=== PATIENT | female | born 1995 | race Caucasian/White ===

== ENCOUNTER 2017-06-30 13:17 | Outpatient (CLI) | payer MEDICAID ==
[2017-06-30 14:36] LABS: AMNISURE (ROM) NEGATIVE (NEGATIVE)
[2017-06-30 14:36] LABS: APPEARANCE,URINE CLOUDY; BILIRUBIN,URINE NEGATIVE (NEGATIVE); GLUCOSE, URINE NEGATIVE (NEGATIVE); KETONES,URINE 80 mg/dL (NEGATIVE); LEUKOCYTE ESTERASE,URINE LARGE (NEGATIVE); NITRITE,URINE NEGATIVE (NEGATIVE); PROTEIN,URINE 30 mg/dL (NEGATIVE); URINE SPECIFIC GRAVITY 1.011
[2017-06-30 14:47] LABS: BACTERIA,URINE TRACE /HPF; WBC,URINE 20-30 /HPF
[2017-06-30 15:12] LABS: URINE BARBITURATES SCREEN NEGATIVE; URINE METHADONE SCREEN NEGATIVE; URINE PHENCYCLIDINE SCREEN NEGATIVE
[2017-06-30 15:22] LABS: URINE OPIATES LOW UNCONFIRMED POSITIVE
== END 2017-06-30 15:47 | disposition home or self-care (01) ==
LOC: LC 13:17
PROVIDERS: ATTEND Student in an Organized Health Care Education/Training Program
PROC: 4A1HXCZ Monitoring of Products of Conception, Cardiac Rate, External Approach (ICD-10-PCS; principal; 2017-06-30)
DX: O23.43 Unspecified infection of urinary tract in pregnancy, third trimester (principal); Z3A.28 28 weeks gestation of pregnancy
CPT/HCPCS: 59899; 84112; 87086; 87210; 87088; 81001; 80307; 87491; 87591; G0480 ×2; G6056; 80361

== ENCOUNTER → 2017-08-16 | Outpatient (CLI) | payer MEDICAID | LOC: OD 16:56 | PROVIDERS: ATTEND Midwife | DX: O26.619 Liver and biliary tract disorders in pregnancy, unspecified trimester (principal) | CPT/HCPCS: 36415; 82239 ==

== ENCOUNTER 2017-08-19 14:46 | Outpatient (CLI) | payer MEDICAID ==
[2017-08-19] MEDS ORDERED: RINGERS SOLUTION,LACTATED 300 ML IV ONE (15:36)
[2017-08-19] MEDS ORDERED: RINGERS SOLUTION,LACTATED 1,000 ML IV PRN (15:36)
[2017-08-19 17:03] LABS: ALANINE AMINOTRANSFERASE 52 U/L (9-52); ALBUMIN 3.2 g/dL (3.5-5.0); ALKALINE PHOSPHATASE 144 U/L (38-126); ANION GAP 8 (5-19); ASPARTATE AMINO TRANSFERASE 44 U/L (14-36); BILIRUBIN,DIRECT 0.2 mg/dL (0.0-0.4); BILIRUBIN,TOTAL 0.2 mg/dL (0.2-1.3); BLOOD UREA NITROGEN 6 mg/dL (7-20); CALCIUM 9.4 mg/dL (8.4-10.2); CARBON DIOXIDE 24 mmol/L (22-30); CHLORIDE 104 mmol/L (98-107); GLUCOSE 85 mg/dL (75-110); POTASSIUM 4.1 mmol/L (3.6-5.0); SODIUM 136.1 mmol/L (137-145); TOTAL PROTEIN 5.8 g/dL (6.3-8.2)
[2017-08-19 17:25] LABS: APPEARANCE,URINE SLIGHTLY-CLOUDY; BILIRUBIN,URINE NEGATIVE (NEGATIVE); COLOR,URINE STRAW; GLUCOSE, URINE NEGATIVE (NEGATIVE); KETONES,URINE NEGATIVE (NEGATIVE); LEUKOCYTE ESTERASE,URINE SMALL (NEGATIVE); NITRITE,URINE NEGATIVE (NEGATIVE); PROTEIN,URINE NEGATIVE (NEGATIVE); URINE SPECIFIC GRAVITY 1.005; UROBILINOGEN,URINE NEGATIVE mg/dL (<2.0)
[2017-08-19 17:36] LABS: URINE AMPHETAMINES SCREEN NEGATIVE; URINE BARBITURATES SCREEN NEGATIVE; URINE COCAINE SCREEN NEGATIVE; URINE MARIJUANA (THC) SCREEN NEGATIVE; URINE METHADONE SCREEN NEGATIVE; URINE PHENCYCLIDINE SCREEN NEGATIVE
[2017-08-19 17:41] LABS: URINE BENZODIAZEPINES SCREEN UNCONFIRMED POSITIVE
--- NOTE | 2017-08-19 18:36 | Non Stress Test Report ---
Non Stress Test Datetime Report Generated by CPN: 08/19/2017 18:35 DEMOGRAPHIC EGA NST: 35.3 INDICATION Indication for Study: Ordered by Provider MONITORING Monitor Explained: Monitor Explained; Test Explained; Patient Verbalized Understanding Time on Monitor: 08/19/2017 15:10 Time off Monitor: 08/19/2017 17:30 NST Duration: 140 NST INTERVENTIONS NST Interventions: PO Hydration; IV Fluids; For Biophysical Profile Physician Notified NST: Dr. Tony BABY A: [id number] BABY A Movement : Present Contraction Frequency : 4-8 FHR Baseline : 145 Accelerations : 15X15 Decelerations : None Variability : Moderate 6-25bpm NST Review: Meets Criteria for Reactive NST NST Review and Verified By : Malia Long RNC NST Results: Reactive NST REPORT Report Trigger: Send Report
--- NOTE | 2017-08-19 19:35 | RADIOLOGY REPORT (SQ) ---
EXAM DESCRIPTION: U/S PROFILE W/O STRESS COMPLETED DATE/TIME: 08/19/2017 7:24 pm REASON FOR STUDY: repeat BPP from [facility] COMPARISON: None. TECHNIQUE: Limited ramirez-scale realtime and static images of the fetus to measure specified parameter s. LIMITATIONS: None. FINDINGS: HEART RATE: 157 beats per minute. JIGAR: 13.2 cm. BREATHING MOVEMENT: 2 points. MOVEMENT: 2 points. POSTURE AND TONE: 2 points. QUALITATIVE JIGAR: 2 points. OTHER: No other significant finding. IMPRESSION: BIOPHYSICAL PROFILE: 03/05. COMMENT: BREATHING MOVEMENTS: 2 POINTS: PRESENT 0 POINTS: ABSENT MOTION: 2 POINTS: PRESENT 0 POINTS: ABSENT TONE: 2 POINTS: PRESENT 0 POINTS: ABSENT AMNIOTIC FLUID VOLUME: 2 POINTS: LARGEST POCKET GREATER THAN 2 CM DEPTH. 0 POINTS: NO POCKET OF 2 CM. TECHNICAL DOCUMENTATION: JOB ID: [id number] [employer]- All Rights Reserved
== END 2017-08-19 19:36 | disposition home or self-care (01) ==
LOC: LC 14:46
PROVIDERS: ATTEND Obstetrics & Gynecology
PROC: 4A1HXCZ Monitoring of Products of Conception, Cardiac Rate, External Approach (ICD-10-PCS; principal; 2017-08-19)
DX: O47.03 False labor before 37 completed weeks of gestation, third trimester (principal); Z3A.35 35 weeks gestation of pregnancy
CPT/HCPCS: 36415; 59025; 76819; 80053; 80307; 81001

== ENCOUNTER 2017-08-25 14:44 | Emergency (ER) | payer MEDICAID ==
[2017-08-25] MEDS ORDERED: DIPHENHYDRAMINE HCL 50 MG CAPSULE PO ONE (15:41)
[2017-08-25] MEDS ORDERED: PENICILLIN G BENZATHINE 1.2 MILLION UNIT/2 ML DISP.SYRIN IM ONE (15:41)
[2017-08-25] MEDS ORDERED: FAMOTIDINE 20 MG TABLET PO ONE ×2 (15:41→16:11)
--- NOTE | 2017-08-25 15:41 | ER Document Report ---
ED GI/ - General Chief Complaint: STD Exposure Stated Complaint: STD CHECK Time Seen by Provider: 08/25/17 15:12 Mode of Arrival: Ambulatory Information source: Patient Notes: 22-year-old female presented to ED for STD check. She states that she was provided by her previous partner that they tested positive for syphilis. She states she was with this person and early July. She states that in June 2017, she was diagnosed with HSV-2 and trichomonas and was treated with Valtrex and Flagyl. She stated a year ago she was treated for chlamydia. She denies any vaginal itching, vaginal discharge, any foul odors or any other complications or signs or symptoms at this time. She is 36 weeks . TRAVEL OUTSIDE OF THE [place] IN LAST 30 DAYS: No - HPI Patient complains to provider of: Other - Sexual partner told her that they were positive for syphilis Onset: Other - Partner called her on Saturday and told her that the partner was positive for syphilis Quality of pain: No pain Pain Level: Denies Vaginal bleeding (Compared to normal period): None Menstrual period history: : 2 Para: 1 Sexual history: Active Associated symptoms: Nausea, Vomiting, Other - Partner tested positive for sepsis Exacerbated by: Denies Relieved by: Denies Similar symptoms previously: No Recently seen / treated by doctor: Yes - Related Data Allergies/Adverse Reactions: amoxicillin [Amoxicillin] Allergy (Verified 08/19/17 15:24) Hives Penicillins Allergy (Verified 08/19/17 15:24) Past Medical History - General Information source: Patient - Social History Smoking Status: Current Every Day Smoker Cigarette use (# per day): Yes Chew tobacco use (# tins/day): No Smoking Education Provided: Yes - 4 min Frequency of alcohol use: None Drug Abuse: None Lives with: Family Family History: Reviewed & Not Pertinent, Other - ptsd, bipolar, alcoholism Patient has suicidal ideation: No Patient has homicidal ideation: No - Past Medical History Cardiac Medical History: Reports: None Pulmonary Medical History: Reports: None EENT Medical History: Reports: None Neurological Medical History: Reports: None Endocrine Medical History: Reports: None Renal/ Medical History: Reports: Hx Pelvic Inflammatory Disease, Other - HSV-2 Malignancy Medical History: Reports: None GI Medical History: Reports: None Musculoskeltal Medical History: Reports None Psychiatric Medical History: Reports: Hx Anxiety, Hx Bipolar Disorder, Hx Depression Traumatic Medical History: Reports: None Infectious Medical History: Reports: None Surgical Hx: Negative - Immunizations Immunizations up to date: No Hx Diphtheria, Pertussis, Tetanus Vaccination: No Review of Systems - Review of Systems Constitutional: No symptoms reported EENT: No symptoms reported Cardiovascular: No symptoms reported Respiratory: No symptoms reported Gastrointestinal: Nausea, Vomiting Genitourinary: No symptoms reported Female Genitourinary: Musculoskeletal: No symptoms reported Skin: No symptoms reported Hematologic/Lymphatic: No symptoms reported Neurological/Psychological: No symptoms reported -: Yes All other systems reviewed and negative Physical Exam - Vital signs Vitals: Temp Pulse Resp BP Pulse Ox 98.8 F 76 20 115/66 100 08/25/17 14:49 08/25/17 14:49 08/25/17 14:49 08/25/17 14:49 08/25/17 14:49 Interpretation: Normal - General General appearance: Appears well, Alert - HEENT Head: Normocephalic, Atraumatic Eyes: Normal Pupils: PERRL Ears: Normal External canal: Normal Tympanic membrane: Normal Sinus: Normal Nasal: Normal Mouth/Lips: Normal Mucous membranes: Normal Pharynx: Normal Neck: Normal - Respiratory Respiratory status: No respiratory distress Chest status: Nontender Breath sounds: Normal Chest palpation: Normal - Cardiovascular Rhythm: Regular Heart sounds: Normal auscultation Murmur: No - Abdominal Inspection: Gravid female Distension: No distension Bowel sounds: Normal Tenderness: Nontender Organomegaly: No organomegaly - Back Back: Normal, Nontender - Extremities General upper extremity: Normal inspection, Nontender, Normal color, Normal ROM , Normal temperature General lower extremity: Normal inspection, Nontender, Normal color, Normal ROM , Normal temperature, Normal weight bearing. No: Ashtyn's sign - Neurological Neuro grossly intact: Yes Cognition: Normal Orientation: AAOx4 [place] Coma Scale Eye Opening: Spontaneous Justina Coma Scale Verbal: Oriented [place] Coma Scale Motor: Obeys Commands [place] Coma Scale Total: 15 Speech: Normal Motor strength normal: LUE, RUE, LLE, RLE Sensory: Normal - Psychological Associated symptoms: Normal affect, Normal mood - Skin Skin Temperature: Warm Skin Moisture: Dry Skin Color: Normal Course - Re-evaluation Re-evalutation: 08/25/17 15:27 22-year-old female seen for a partner that is positive for syphilis. She is 36 weeks . [facility] Dr. Staton consulted he stated to treat the matter what the tests results. 08/25/17 15:[address] Shah because patient is states she is allergic to penicillin. Mother states she had a rash all over when she was a child has not had any penicillin amoxicillin or cephalosporins since then. Patient states she wanted the penicillin for her possible contact with syphilis as she is 36 weeks and does not want to take the risk of her baby not being treated properly. Dr. Shah stating stated that he would prefer COOKER SULF[facility] and consulted for this. Dr. Staton at [facility] consulted he stated that the patient should have Benadryl and Pepcid before the penicillin but to give the patient the penicillin because most people do not have a true allergic reaction to penicillin. Patient will be treated with Benadryl and Pepcid then 15 minutes later given the penicillin. She will be monitored for 1 hour after the penicillin injection. - Vital Signs Vital signs: Temp Pulse Resp BP Pulse Ox 98.8 F 83 13 111/58 L 98 08/25/17 17:57 08/25/17 17:57 08/25/17 17:57 08/25/17 17:57 08/25/17 17:57 - Laboratory Laboratory results interpreted by me: 08/25/17 15:45 Urine Protein 30 H Urine Ketones 20 H Urine Urobilinogen 4.0 H Ur Leukocyte Esterase TRACE H Discharge - Discharge Clinical Impression: STD exposure Condition: Stable Disposition: HOME, SELF-CARE Additional Instructions: You were seen today for STD exposure to syphilis. Your [facility] SULF[facility] was called and he stated he would like to treated if you have been exposed to this because she were 36 weeks . You are allergic to penicillin according to your records this was discussed with your [facility] Dr. Staton who stated you should be premedicated with Benadryl and Pepcid and then medicated with the penicillin G 2.4 million units IM. You have been medicated as indicated. You have had no reactions to the penicillin. You gonorrhea and chlamydia and urine test are negative. You have been stable for your observation ater the penicillin and you will be discharged home to follow-up with your [facility]ULF[facility]. These informed him that your RPR was negative. FOLLOW-UP CARE: If you have been referred to a physician for follow-up care, call the physician s office for an appointment as you were instructed or within the next two days. If you experience worsening or a significant change in your symptoms, notify the physician immediately or return to the Emergency Department at any time for re-evaluation. Referrals: PEYTON RESENDIZ MD [Primary Care Provider] - Follow up as needed
[2017-08-25] MEDS ORDERED: FAMOTIDINE INJ/PF 20 MG/2 ML SDV IV ONE ×2 (16:05→16:13)
[2017-08-25] MEDS ORDERED: DIPHENHYDRAMINE HCL 50 MG/ML VIAL IV ONE (16:05)
[2017-08-25 16:20] LABS: AMORPHOUS SEDIMENT,URINE TRACE /HPF; APPEARANCE,URINE SLIGHTLY-CLOUDY; BILIRUBIN,URINE NEGATIVE (NEGATIVE); COLOR,URINE DARK YELLOW; GLUCOSE, URINE NEGATIVE (NEGATIVE); KETONES,URINE 20 mg/dL (NEGATIVE); LEUKOCYTE ESTERASE,URINE TRACE (NEGATIVE); NITRITE,URINE NEGATIVE (NEGATIVE); PROTEIN,URINE 30 mg/dL (NEGATIVE); URINE SPECIFIC GRAVITY 1.024
[2017-08-25 17:39] LABS: CHLAM PCR NOT DETECTED (NOT DETECT); GON PCR NOT DETECTED (NOT DETECT)
[2017-08-25 17:59] VITALS: BP 111/58
== END 2017-08-25 17:59 | disposition home or self-care (01) ==
LOC: ER 14:44
DX: O98.313 Other infections with a predominantly sexual mode of transmission complicating pregnancy, third trimester (principal); Z20.2 Contact with and (suspected) exposure to infections with a predominantly sexual mode of transmission; Z3A.36 36 weeks gestation of pregnancy
CPT/HCPCS: 99283; 96372; 96374; 96375; 36415; 86592; 81001; 87491; 87591; J3490 ×2; J1200; J0561; S0028

== ENCOUNTER 2017-09-04 08:05 | Inpatient (IN) | payer MEDICAID ==
[2017-09-04] MEDS ORDERED: PENICILLIN G POTASSIUM 5,000,000 UNIT in DEXTROSE 5%-WATER 100 ML IV ONE (08:22)
[2017-09-04] MEDS ORDERED: FAMOTIDINE INJ/PF 20 MG/2 ML SDV IV ONE ×2 (08:25→09:15)
[2017-09-04 08:42] LABS: APPEARANCE,URINE SLIGHTLY-CLOUDY; BILIRUBIN,URINE NEGATIVE (NEGATIVE); COLOR,URINE YELLOW; GLUCOSE, URINE NEGATIVE (NEGATIVE); KETONES,URINE NEGATIVE (NEGATIVE); LEUKOCYTE ESTERASE,URINE SMALL (NEGATIVE); NITRITE,URINE NEGATIVE (NEGATIVE); PROTEIN,URINE 30 mg/dL (NEGATIVE); UROBILINOGEN,URINE NEGATIVE mg/dL (<2.0)
[2017-09-04 09:09] LABS: URINE AMPHETAMINES SCREEN NEGATIVE; URINE BARBITURATES SCREEN NEGATIVE; URINE BENZODIAZEPINES SCREEN NEGATIVE; URINE COCAINE SCREEN NEGATIVE; URINE MARIJUANA (THC) SCREEN NEGATIVE; URINE METHADONE SCREEN NEGATIVE; URINE PHENCYCLIDINE SCREEN NEGATIVE
[2017-09-04] MEDS ORDERED: DIPHENHYDRAMINE HCL 50 MG/ML VIAL ONE ×3 (09:15→18:21)
[2017-09-04] MEDS ORDERED: MISOPROSTOL 0.2 MG TABLET ONE ×2 (09:15→20:04)
[2017-09-04] MEDS ORDERED: LIDOCAINE 1% INJ-PF (10 MG/ML) 30 ML SDV ONE ×2 (09:15→20:04)
[2017-09-04] MEDS ORDERED: PENICILLIN G-K 5 MILLION UNIT VIAL ONE ×3 (09:16→18:20)
[2017-09-04] MEDS ORDERED: OXYTOCIN/NORMAL SALINE 20 UNIT/1,000 ML RTUINJ ONE (09:16)
[2017-09-04] MEDS: RINGERS SOLUTION,LACTATED 1,000 ML IV PRN ×2 (09:21→19:14)
[2017-09-04 09:22] LABS: ABSOLUTE EOSINOPHILS # (AUTO) 0.1 10^3/uL (0.0-0.6); ABSOLUTE LYMPHOCYTES (AUTO) 2.7 10^3/uL (0.5-4.7); ABSOLUTE MONOCYTES (AUTO) 0.9 10^3/uL (0.1-1.4); ABSOLUTE NEUT (AUTO) 5.7 10^3/uL (1.7-8.2); BASOPHILS % (AUTO) 0.2 % (0-2); EOSINOPHILS % (AUTO) 0.9 % (0-6); HEMATOCRIT 31.5 % (36.0-47.0); HEMOGLOBIN 10.8 g/dL (12.0-15.5); LYMPHOCYTES % (AUTO) 28.9 % (13-45); MEAN CORPUSCULAR HEMOGLOBIN 27.3 pg (27.0-33.4); MEAN CORPUSCULAR HGB CONC 34.4 g/dL (32.0-36.0); MEAN CORPUSCULAR VOLUME 79 fl (80-97); MONOCYTES % (AUTO) 9.3 % (3-13); PLATELET COUNT 266 10^3/uL (150-450); RED BLOOD COUNT 3.96 10^6/uL (3.72-5.28); RED CELL DISTRIBUTION WIDTH 13.4 % (11.5-14.0); SEGMENTED NEUTROPHILS % (AUTO) 60.7 % (42-78); TOTAL CELLS COUNTED % (AUTO) 100 %; WHITE BLOOD COUNT 9.5 10^3/uL (4.0-10.5)
[2017-09-04] MEDS ORDERED: DIPHENHYDRAMINE HCL 50 MG/ML VIAL IV ONE (09:30)
[2017-09-04 09:34] LABS: INTERNATIONAL RATION (INR) 0.82; PROTHROMBIN TIME 11.9 SEC (11.4-15.4)
[2017-09-04 09:46] LABS: ALANINE AMINOTRANSFERASE 58 U/L (9-52); ALBUMIN 3.2 g/dL (3.5-5.0); ALKALINE PHOSPHATASE 155 U/L (38-126); ANION GAP 11 (5-19); ASPARTATE AMINO TRANSFERASE 53 U/L (14-36); BLOOD UREA NITROGEN 7 mg/dL (7-20); CALCIUM 9.5 mg/dL (8.4-10.2); CARBON DIOXIDE 20 mmol/L (22-30); CHLORIDE 106 mmol/L (98-107); GLUCOSE 112 mg/dL (75-110); LDH 377 U/L (313-618); POTASSIUM 3.7 mmol/L (3.6-5.0); SODIUM 137.4 mmol/L (137-145); TOTAL PROTEIN 5.8 g/dL (6.3-8.2); URIC ACID 4.9 mg/dL (2.5-6.2)
[2017-09-04 09:48] LABS: BILIRUBIN,TOTAL < 0.1 mg/dL (0.2-1.3)
[2017-09-04] MEDS: OXYTOCIN/NORMAL SALINE 20 UNIT/1,000 ML RTUINJ IV PRN ×2 (12:21→19:13)
[2017-09-04] MEDS ORDERED: MORPHINE SULFATE 10 MG/ML INJ IV ONE (14:07)
[2017-09-04] MEDS: PENICILLIN G POTASSIUM 2,500,000 UNIT in DEXTROSE 5%-WATER 50 ML IV SCH ×3 (14:18→21:41)
[2017-09-04] MEDS ORDERED: NALBUPHINE HCL INJ 10 MG/1 ML AMPULE INJ ONE (16:19)
[2017-09-04] MEDS ORDERED: NALBUPHINE HCL INJ 10 MG/1 ML AMPULE ONE (16:24)
[2017-09-04] MEDS ORDERED: FENTANYL CITRATE INJ/PF 100 MCG/2 ML AMPUL ONE (17:08)
[2017-09-04] MEDS ORDERED: EPHEDRINE SULFATE INJ 50 MG/1 ML AMPULE ONE (17:09)
[2017-09-04] MEDS ORDERED: FENTANYL/BUPIVACAINE/NS/PF 200 MCG/100 ML RTUINJ EPI ONE (17:09)
[2017-09-04] MEDS ORDERED: BUPIVACAINE HCL 0.25 % INJ/PF (2.5 MG/1 ML) 30 ML VIAL ONE (17:09)
[2017-09-04] MEDS ORDERED: PHENYLEPHRINE HCL INJ/PF 10 MG/1 ML SDV ONE (17:09)
[2017-09-04] MEDS ORDERED: ZOLPIDEM TARTRATE 5 MG TABLET PO PRN (20:59)
[2017-09-04] MEDS ORDERED: GLYCERIN/WITCH HAZEL LEAF 1 EACH MED..PAD TP PRN (20:59)
[2017-09-04] MEDS ORDERED: DIPHENHYDRAMINE HCL 25 MG CAPSULE PO PRN (20:59)
[2017-09-04] MEDS ORDERED: NA PHOS,M-B/NA PHOS,DI-BA (ADULT) 133 ML ENEMA PR PRN (20:59)
[2017-09-04] MEDS ORDERED: OXYTOCIN/NORMAL SALINE 20 UNIT/1,000 ML RTUINJ IV PRN (20:59)
[2017-09-04] MEDS ORDERED: PROMETHAZINE HCL 25 MG SUPP.RECT PR PRN (20:59)
[2017-09-04] MEDS ORDERED: PROMETHAZINE HCL 25 MG TABLET PO PRN (20:59)
[2017-09-04] MEDS ORDERED: MEASLES,MUMPS&RUBELLA VACC/PF 0.5 ML VIAL SUBCUT PRN (20:59)
[2017-09-04] MEDS ORDERED: PSEUDOEPHEDRINE HCL 30 MG TABLET PO PRN (20:59)
[2017-09-04] MEDS ORDERED: PROMETHAZINE HCL INJ 25 MG/1 ML VIAL IV PRN (20:59)
[2017-09-04] MEDS ORDERED: DIBUCAINE 1% OINTMENT 28 GM TP PRN (20:59)
[2017-09-04] MEDS ORDERED: ACETAMINOPHEN WITH CODEINE #3 TABLET PO PRN (20:59)
[2017-09-04] MEDS ORDERED: ACETAMINOPHEN 650 MG SUPP.RECT PR PRN (20:59)
[2017-09-04] MEDS ORDERED: DIPH/PERTUSS(ACELL)/TETANUS VAC/PF 0.5 ML SYR (>=10YO) IM PRN (20:59)
[2017-09-04] MEDS ORDERED: BENZOCAINE/MENTHOL AEROSOL SPRAY 56 ML TOP PRN (20:59)
[2017-09-04] MEDS ORDERED: MAGNESIUM HYDROXIDE SUSP 30 ML UDCUP PO PRN (20:59)
[2017-09-04] MEDS ORDERED: ACETAMINOPHEN 325 MG TABLET PO PRN (22:20)
[2017-09-04] MEDS ORDERED: ACETAMINOPHEN 325 MG TABLET ONE (22:22)
--- NOTE | 2017-09-04 23:33 | Admission Physical ---
Datetime Report Generated by CPN: 09/04/2017 23:33 CURRENT ADMISSION Hx Assessment: The History has been Reviewed and is Current Chief Complaint: Scheduled Induction of Labor Indication for Induction: Other Indication for Induction: Term, Intrauterine ; No Active Labor; Intact Membranes Admit Plan: Admit to Unit; Initiate Labor Induction Protocol ALLERGIES Medication Allergies: Yes Medication Allergies: Penicillins (08/19/2017); amoxicillin/Hives (08/19/2017) Medication Allergies: Penicillins (06/30/2017); amoxicillin/Hives (06/30/2017) Medication Allergies: Penicillins (03/02/2015); amoxicillin/Hives (03/02/2015) Latex: No Latex Allergies Food Allergies: n/a Environmental Allergies: n/a OBSTETRICAL HISTORY EDC: 09/20/2017 00:00 : 2 Para: 1 Term: 1 : 0 SAB: 0 IAB: 0 Ectopic: 0 Livin Cesareans: 0 VBACs: 0 Multiple Births: 0 Gestational Diabetes: No Rh Sensitization: No Incompetent Cervix: No GABRIEL: No Infertility: No ART Treatment: No Uterine Anomaly: No IUGR: No Hx Previous C/S: No Macrosomia: No Hx Loss/Stillborn: No PIH: No Hx : No Placenta Previa/Abruption: No Depression/PP Depression: Yes PTL/PROM: No Post Hemorrhage: No Current Procedures: Ultrasound; NST; BPP Obstetrical History Comments: G1- 2012 40 week baby boy 6 lbs 9 oz, epidural G2- current , cholestasis SEE RECORDS Alcohol: No Marijuana : No Cocaine: No Other Illicit Drugs: Yes Illicit Drug Comments: heroin last used 03/2017 Cigarettes: Current Everyday Smoker. [id number] MEDICAL HISTORY Diabetes: No Blood Transfusion: No Pulmonary Disease (Asthma, TB): No Breast Disease: No Hypertension: No Mines Inspector Surgery: No Heart Disease: No Hosp/Surgery: No Autoimmune Disorder: No Anesthetic Complications: No Kidney Disease: No Abnormal Pap Smear: No Neuro/Epilepsy: No Psychiatric Disorders: Yes Other Medical Diseases: No Hepatitis/Liver Disease: No Significant Family History: No Varicosities/Phlebitis: No Trauma/Violence : No Thyroid Dysfunction: No Medical History Comments: anxiety, depression, history of IV heroin use- last use per pt was 03/2017 INFECTIOUS HISTORY Gonorrhea: No Genital Herpes: Yes Chlamydia: Yes Tuberculosis: No Syphilis: No Hepatitis: No HIV/AIDS Exposure: No Rash or Viral Illness: No HPV: No Infectious History Comments: chlamydia 01/2016 HSV with last outbreak 08/19/2017 PHYSICAL EXAM General: Normal HEENT: Normal Neurologic: Normal Thyroid: Deferred Heart: Normal Lungs: Normal Breast: Deferred Back: Normal Abdomen: Normal Genitourinary Exam: Normal Extremities: Normal DTRs: Normal Pelvic Type: Adequate Physical Exam Comments: Pt with known herpes. No prodrome. No lesion noted on speculum. Vital Signs: Reviewed VAGINAL EXAM Dilatation: 4 Dilatation: 3 Effacement: 50 Effacement: 50 Station: -2 Station: -2 Contraction Comments: q 2 Contraction Comments: rate MEMBRANES Membranes: Intact FETUS A EGA: 37.5 Monitoring: External US FHR- Baseline: 145 Variability: Moderate 6-25bpm Accelerations: 15X15 Decelerations: None FHR Category: Category I Presentation: Vertex Admit Comment: 22yo at 37+5ega presents for scheduled IOL due to Cholestasis of with elevated bile acids (44) and abnormal LFTs. Coags ordered on admission. Pelvis proven to 6#9oz. Pt on ursodiol 500mg BID. H/o heroin use - last used in February per notes. Pt reports subutex make her sick - not on meds now. UDS on admission - negative. Pt with favorable cvx and will admit for IOL due to ICP. Pt on valtrex for h/o HSV but no lesions on exam. GBS positive - PCN for prophylaxis. Pt recieved PCN for poss syphillis exposure in ER last week and tolerated PCN without difficulty. PLANS FOR LABOR AND DELIVERY Labor and Delivery: None Pain Management: Epidural Feeding Preference: Breast Benefit of Breast Feed Discussed: Yes Circumcision: Yes INFORMED CONSENT Informed Consent Obtained: Vaginal Delivery; Induction of Labor; Risks, Benefits and Alternatives Discussed Informed Consent Obtained: Vaginal Delivery; Induction of Labor; Risks, Benefits and Alternatives Discussed Signature: with User ID: [email or web address]
[2017-09-04] MEDS: FAMOTIDINE 20 MG TABLET PO SCH (23:36)
[2017-09-04] MEDS: IBUPROFEN 800 MG TABLET PO SCH (23:36)
[2017-09-05] MEDS: ACETAMINOPHEN WITH CODEINE #3 TABLET PO PRN ×3 (02:46→17:36)
[2017-09-05] MEDS: IBUPROFEN 800 MG TABLET PO SCH ×3 (05:50→21:08)
[2017-09-05 09:28] LABS: HEMATOCRIT 28.1 % (36.0-47.0); HEMOGLOBIN 9.6 g/dL (12.0-15.5); MEAN CORPUSCULAR HEMOGLOBIN 27.5 pg (27.0-33.4); MEAN CORPUSCULAR HGB CONC 34.3 g/dL (32.0-36.0); MEAN CORPUSCULAR VOLUME 80 fl (80-97); PLATELET COUNT 262 10^3/uL (150-450); RED BLOOD COUNT 3.51 10^6/uL (3.72-5.28); RED CELL DISTRIBUTION WIDTH 13.5 % (11.5-14.0); WHITE BLOOD COUNT 12.1 10^3/uL (4.0-10.5)
[2017-09-05] MEDS: FERROUS SULFATE 325 MG TABLET PO SCH ×2 (10:32→17:35)
[2017-09-05] MEDS: SENNOSIDES/DOCUSATE 8.6-50 MG 1 EACH TABLET PO SCH (10:33)
[2017-09-05] MEDS: PRENATAL VITAMIN W DHA CAPSULE PO SCH (10:33)
[2017-09-05] MEDS: DOCUSATE SODIUM 100 MG CAPSULE PO SCH ×2 (10:33→17:35)
[2017-09-05] MEDS: FAMOTIDINE 20 MG TABLET PO SCH ×2 (10:33→21:08)
--- NOTE | 2017-09-05 11:18 | PDOC PROGRESS REPORT ---
Subjective-OB Progress Note for:: 09/05/17 Physical Exam (OB) Vital Signs: Temp Pulse Resp BP Pulse Ox 98.6 F 81 16 114/68 100 09/05/17 07:57 09/05/17 07:57 09/05/17 07:57 09/05/17 07:57 09/05/17 07:57 Intake & Output 09/04/17 09/05/17 09/06/17 06:59 06:59 06:59 Weight 55.7 kg - Lochia Lochia Amount: Moderate 25-50 ml Lochia Color: Rubra/Red - Abdomen Description: Tender, Soft, Flat Hernia Present: No Bowel Sounds: Normoactive Flatus Presence: Present Stool: No Fundal Description: Firm, Midline Fundal Height: u/u - u/2 Objective-Diagnostic Laboratory: 09/05/17 08:51 09/04/17 09:05 09/05/17 08:51 WBC 12.1 H RBC 3.51 L Hgb 9.6 L Hct 28.1 L MCV 80 MCH 27.5 MCHC 34.3 RDW 13.5 Plt Count 262
[2017-09-06] MEDS: IBUPROFEN 800 MG TABLET PO SCH ×2 (05:13→15:12)
[2017-09-06] MEDS: SENNOSIDES/DOCUSATE 8.6-50 MG 1 EACH TABLET PO SCH (09:37)
[2017-09-06] MEDS: FAMOTIDINE 20 MG TABLET PO SCH (09:37)
[2017-09-06] MEDS: FERROUS SULFATE 325 MG TABLET PO SCH ×2 (09:37→18:05)
[2017-09-06] MEDS: PRENATAL VITAMIN W DHA CAPSULE PO SCH (09:37)
[2017-09-06] MEDS: DOCUSATE SODIUM 100 MG CAPSULE PO SCH ×2 (09:38→18:05)
[2017-09-06] MEDS: ACETAMINOPHEN WITH CODEINE #3 TABLET PO PRN (09:51)
--- NOTE | 2017-09-06 11:12 | PDOC DISCHARGE SUMMARY ---
Final Diagnosis Discharge Date: 09/06/17 - Final Diagnosis (1) Cholestasis during Is this a current diagnosis for this admission?: Yes (2) Depression with anxiety Is this a current diagnosis for this admission?: Yes (3) Encounter for induction of labor Is this a current diagnosis for this admission?: Yes (4) HSV infection in Is this a current diagnosis for this admission?: Yes (5) History of heroin abuse Is this a current diagnosis for this admission?: Yes (6) Vaginal delivery Is this a current diagnosis for this admission?: Yes Discharge Data - Discharge Medication Prescriptions: Acetaminophen with Codeine [Tylenol #3 Tablet] 2 each PO Q4HP PRN #10 tablet PRN Reason: Docusate Sodium [Colace 100 mg Capsule] 100 mg PO BID #60 capsule Ferrous Sulfate [Feosol 325 mg Tablet] 325 mg PO BID #60 tablet Ibuprofen [Motrin 800 mg Tablet] 800 mg PO Q8 #60 tablet Home Medications: Vit/Iron Fum/Folic AC [ Tablet] 1 each PO DAILY 08/19/17 Acetaminophen with Codeine [Tylenol #3 Tablet] 2 each PO Q4HP PRN #10 tablet 04/15 Docusate Sodium [Colace 100 mg Capsule] 100 mg PO BID #60 capsule 09/06/17 Ferrous Sulfate [Feosol 325 mg Tablet] 325 mg PO BID #60 tablet 09/06/17 Ibuprofen [Motrin 800 mg Tablet] 800 mg PO Q8 #60 tablet 09/06/17 Gestational Age: 37.5 Reason(s) for Admission: Induction of Labor, Other - cholestasis Procedures: NST Intrapartum Procedure(s): Spontaneous Vaginal Delivery - Data Baby 1 Male Home with Mother: Yes Complications: No - Diagnosis Test Laboratory: Temp Pulse Resp BP Pulse Ox 98.3 F 86 14 120/64 100 09/06/17 08:47 09/06/17 08:47 09/06/17 08:47 09/06/17 08:47 09/06/17 08:47 09/04/17 09/04/17 09/05/17 08:13 09:05 08:51 RBC 3.96 3.51 L Hgb 10.8 L 9.6 L Hct 31.5 L 28.1 L Urine Opiates Screen NEGATIVE - Discharge information/Instructions Discharge Activity: Activity As Tolerated, Pelvic Rest, No tub bath Discharge Diet: Regular Disposition: HOME, SELF-CARE Follow up with: [facility] in: 1, Weeks - hx depression
[2017-09-06 15:00] VITALS: BP 116/65
--- NOTE | 2017-09-08 00:32 | Delivery Summary ---
Del Sum A-C Datetime Report Generated by CPN: 09/08/2017 00:32 DELIVERY PERSONNEL DELIVERY PERSONNEL: [id number] Delivery Doctor:: Fatemeh Saenz MD Labor and Delivery Nurse:: Wally Howe RN Labor and Delivery Nurse:: Michelle Harrell RN Gerontological Nurse Practitioner/CORE PILER: Berta Muller, ST MATERNAL INFORMATION Delivery Anesthesia: Epidural Medications After Delivery: Pitocin Drip 20 Units/1000ml NSS Estimated Blood Loss (ml): 300 Maternal Complications: Precipitous Labor (<3hrs) Provider Comments: VMI delivered in BARBARA presentation. No nuchal cord. Shoulders and body delivered without difficulty. Cord doubly clamped and cut and infant to maternal abdomen for NRP. Placenta delivered intact spontaneously. FF at U. No perineal laceration noted. Good hemostasis. Mother and baby stable upon provider leaving the room. LABOR SUMMARY EDC: 09/20/2017 00:00 No. Babies in Womb: 1 Attempted: No Labor Anesthesia: Epidural LABOR INFORMATION Reason for Induction- Other: cholestasis Onset of Labor: 09/04/2017 18:01 Complete Dilatation: 09/04/2017 19:57 Oxytocin: Induction Group B Beta Strep: Positive Antibiotics # of Doses: 3 Antibiotics Time of Last Dose: 1909 Name of Antibiotic Given: Penicillin Steroids Given: None Reason Steroids Not Administered: Not Applicable MEMBRANES Membranes Rupture Method: Artificial Rupture of Membranes: 09/04/2017 15:23 Length of Rupture (hr): 5.42 Amniotic Fluid Color: Clear Amniotic Fluid Amount: Small Amniotic Fluid Odor: Normal STAGES OF LABOR Stage 1 hr: 1 Stage 1 min: 56 Stage 2 hr: 0 Stage 2 min: 51 Stage 3 hr: 0 Stage 3 min: 2 Total Time in Labor hr: 2 Total Time in Labor min: 49 VAGINAL DELIVERY Episiotomy: None Episiotomy: None Laceration #1: None Laceration #1: None Laceration Extension #1: N/A Laceration Repair: Not Applicable Laceration Repair: Not Applicable Sponge Count Correct: Yes Sponge Count Correct: N/A Sharps Count Correct: Yes Sharps Count Correct: N/A CSECTION DELIVERY Primary Indication: N/A Secondary Indication: N/A CSection Incidence: N/A Labor: N/A Elective: N/A BABY A INFORMATION Infant Delivery Date/Time: 09/04/2017 20:48 Method of Delivery: Vaginal Born in Route : No : N/A Forceps: N/A Vacuum Extraction: N/A Shoulder Dystocia : No PRESENTATION/POSITION BABY A Presentation: Cephalic Cephalic Presentation: Vertex Vertex Position: Left Occipital Anterior Breech Presentation: N/A PLACENTA INFORMATION BABY A Placenta Delivery Time : 09/04/2017 20:50 Placenta Method of Delivery: Spontaneous Placenta Status: Delivered SCORES BABY A Heart Rate 1 min: >100 bpm Resp Effort 1 min: Good Cry Reflex Irritability 1 min: Cough or Sneeze or Pulls Away Muscle Tone 1 min: Active Motion Color 1 min: Blue/Pale Resuscitation Effort 1 min: Tactile Stimulation SCORE 1 MIN: 8 Heart Rate 5 min: >100 bpm Resp Effort 5 min: Good Cry Reflex Irritability 5 min: Cough or Sneeze or Pulls Away Muscle Tone 5 min: Active Motion Color 5 min: Body [place], Extremities Blue Resuscitation Effort 5 min: Tactile Stimulation SCORE 5 MIN: 9 INFANT INFORMATION BABY A Gestational Age at Delivery: 37.5 Gestational Status: Early Term- 37- 38.6 Weeks Infant Outcome : Liveborn Infant Condition : Stable Infant Sex: Male IDENTIFICATION BABY A Verification Date/Time: 09/04/2017 21:04 ID Band Number: [id number] Mother's Name Verified: Yes Infant RN Verifying Infant: , RN Additional Verifying Personnel: DYandy, US/CORE PILER WEIGHT/LENGTH BABY A Infant Birthweight (gm): 2520 Infant Weight (lb): 5 Infant Weight (oz): 9 Length (in): 18.50 Length (cm): 46.99 CORD INFORMATION BABY A No. Cord Vessels: 3 Nuchal Cord : N/A Cord Blood Taken: Yes-For Storage (Mom's Blood type +) Suction: Mouth; Nose ASSESSMENT BABY A Complications: None Physical Findings at Delivery: Within Normal Limits Infant Respirations: Appears Normal Skin to Skin: Yes Skin to Skin Time (min): 60 Medical Examiner/ALS Called : No Care By: K. Sharri RN Transferred To: Remains with Mother BABY B INFORMATION : N/A SIGNATURES Signature: with User ID: [email or web address]
== END 2017-09-06 18:25 | disposition home or self-care (01) | DRG 774 ==
LOC: LR 08:05 → 2S 22:55
PROVIDERS: ADMIT Student in an Organized Health Care Education/Training Program; ATTEND Student in an Organized Health Care Education/Training Program
PROC: 10E0XZZ Delivery of Products of Conception, External Approach (ICD-10-PCS; principal; 2017-09-04)
PROC: 4A1HXCZ Monitoring of Products of Conception, Cardiac Rate, External Approach (ICD-10-PCS; 2017-09-04)
PROC: 10907ZC Drainage of Amniotic Fluid, Therapeutic from Products of Conception, Via Natural or Artificial Opening (ICD-10-PCS; 2017-09-04)
PROC: 3E033VJ Introduction of Other Hormone into Peripheral Vein, Percutaneous Approach (ICD-10-PCS; 2017-09-04)
DX: O26.62 Liver and biliary tract disorders in childbirth (principal); O98.32 Other infections with a predominantly sexual mode of transmission complicating childbirth; K83.1 Obstruction of bile duct; Z37.0 Single live birth; F41.9 Anxiety disorder, unspecified; F32.9 Major depressive disorder, single episode, unspecified; O62.3 Precipitate labor; A60.00 Herpesviral infection of urogenital system, unspecified; O99.824 Streptococcus B carrier state complicating childbirth; O99.334 Smoking (tobacco) complicating childbirth; F17.210 Nicotine dependence, cigarettes, uncomplicated; Z3A.37 37 weeks gestation of pregnancy; Z79.899 Other long term (current) drug therapy
CPT/HCPCS: 36415; 80053; 80307; 81005; 83615; 84550; 85025; 85027; 85610; 85730; 86592; 86850; 86900; 86901; 90715; 94760; J1200; J2300; J2370; J2540; J2590; J3010; J3490; S0028

== ENCOUNTER 2018-09-10 01:24 | Inpatient (IN) | payer MEDICAID ==
[2018-09-10] MEDS ORDERED: OXYTOCIN 10 UNIT/ML VIAL ONE (01:39)
[2018-09-10] MEDS ORDERED: OXYTOCIN/NORMAL SALINE 20 UNIT/1,000 ML RTUINJ ONE (01:39)
[2018-09-10] MEDS ORDERED: MISOPROSTOL 0.2 MG TABLET ONE (01:39)
[2018-09-10] MEDS ORDERED: LIDOCAINE 1% INJ-PF (10 MG/ML) 30 ML SDV ONE (01:39)
--- NOTE | 2018-09-10 01:55 | Admission Physical ---
Datetime Report Generated by CPN: 09/10/2018 01:55 CURRENT ADMISSION Chief Complaint: Uterine Contractions Indication for Induction: Not Applicable Admit Impression : Term, Intrauterine ; Active Labor Admit Impression- Other: poor pnc. history of ilicit drug use Admit Plan: Admit to Unit; Initiate Labor Protocol ALLERGIES Medication Allergies: Penicillins (09/04/2017); amoxicillin/Hives (09/04/2017) OBSTETRICAL HISTORY EDC: 09/27/2018 00:00 PHYSICAL EXAM General: Normal HEENT: Normal Neurologic: Normal Thyroid: Normal Heart: Normal Lungs: Normal Breast: Normal Back: Normal Abdomen: Normal Genitourinary Exam: Normal Extremities: Normal DTRs: Normal Pelvic Type: Adequate Vital Signs: Reviewed; Within Normal Limits VAGINAL EXAM Dilatation: 8 Effacement: 100 Station: -1 MEMBRANES Pooling: Negative Membranes: Intact FETUS A EGA: 37.4 Monitoring: External US FHR- Baseline: 120 Variability: Moderate 6-25bpm Accelerations: 15X15 Decelerations: None FHR Category: Category I Estimated Weight (gm): 2500 Presentation: Vertex INFORMED CONSENT Signature: with User ID: [email or web address]
[2018-09-10] MEDS ORDERED: BENZOCAINE/MENTHOL AEROSOL SPRAY 56 ML TOP PRN (01:58)
[2018-09-10] MEDS ORDERED: ACETAMINOPHEN 650 MG SUPP.RECT PR PRN (01:58)
[2018-09-10] MEDS ORDERED: GLYCERIN/WITCH HAZEL LEAF 1 EACH MED..PAD TP PRN (01:58)
[2018-09-10] MEDS ORDERED: ACETAMINOPHEN WITH CODEINE #3 TABLET PO PRN ×2 (01:58)
[2018-09-10] MEDS ORDERED: DIPHENHYDRAMINE HCL 25 MG CAPSULE PO PRN (01:58)
[2018-09-10] MEDS ORDERED: PSEUDOEPHEDRINE HCL 30 MG TABLET PO PRN (01:58)
[2018-09-10] MEDS ORDERED: NA PHOS,M-B/NA PHOS,DI-BA (ADULT) 133 ML ENEMA PR PRN (01:58)
[2018-09-10] MEDS ORDERED: ZOLPIDEM TARTRATE 5 MG TABLET PO PRN (01:58)
[2018-09-10] MEDS ORDERED: PROMETHAZINE HCL 25 MG SUPP.RECT PR PRN (01:58)
[2018-09-10] MEDS ORDERED: DIBUCAINE 1% OINTMENT 28 GM TP PRN (01:58)
[2018-09-10] MEDS ORDERED: MAGNESIUM HYDROXIDE SUSP 30 ML UDCUP PO PRN (01:58)
[2018-09-10] MEDS ORDERED: OXYTOCIN/NORMAL SALINE 20 UNIT/1,000 ML RTUINJ IV PRN (01:58)
[2018-09-10] MEDS ORDERED: DIPH/PERTUSS(ACELL)/TETANUS VAC/PF 0.5 ML SYR (>=10YO) IM PRN (01:58)
[2018-09-10] MEDS ORDERED: PROMETHAZINE HCL 25 MG TABLET PO PRN (01:58)
[2018-09-10] MEDS ORDERED: PROMETHAZINE HCL INJ 25 MG/1 ML VIAL IV PRN (01:58)
[2018-09-10] MEDS ORDERED: MEASLES,MUMPS&RUBELLA VACC/PF 0.5 ML VIAL SUBCUT PRN (01:58)
--- NOTE | 2018-09-10 02:34 | L&D Progress Notes ---
PROGRESS NOTES Datetime Report Generated by CPN: 09/10/2018 02:34 PROGRESS NOTE Comment: patient requested private conversation regarding her chronic heroin abuse/addiction. Has been using q daily either by injection or by inhalation. She indicates that she has appt for Suboxone initiation this Saturday. I spoke with Hospitalist Dr. Dodson regarding recommendations for managment while in the hospital. He recommends Morphine 5 mg q 6 hrs to prevent severe withdrawal symptoms and for patient to initiate outpatient managment roni. Ativan also to assist with prn agitation. Discharge planning ordered. VAGINAL EXAM Dilatation: 8 Effacement: 100 Station: -1 LAST VAGINAL EXAM-NURSING Dilitation: 10.0 Effacement: 100 MEMBRANES Pooling: Negative Membranes: Intact FETUS A : 37.4 Estimated Weight (gm): 2500 Presentation: Vertex SIGNATURE SIGNATURE: ,[id number];,[id number] SIGNATURE: [id number] Signature: with User ID: [email or web address]
[2018-09-10] MEDS ORDERED: IBUPROFEN 800 MG TABLET ONE (02:42)
[2018-09-10] MEDS ORDERED: IBUPROFEN 800 MG TABLET PO ONE (03:00)
[2018-09-10] MEDS ORDERED: MORPHINE SULFATE 10 MG/ML INJ IV SCH (03:00)
[2018-09-10 03:01] LABS: ABSOLUTE LYMPHOCYTES (AUTO) 2.1 10^3/uL (0.5-4.7); ABSOLUTE MONOCYTES (AUTO) 0.9 10^3/uL (0.1-1.4); ABSOLUTE NEUT (AUTO) 12.3 10^3/uL (1.7-8.2); BASOPHILS % (AUTO) 0.2 % (0-2); EOSINOPHILS % (AUTO) 0.3 % (0-6); HEMATOCRIT 29.5 % (36.0-47.0); HEMOGLOBIN 9.7 g/dL (12.0-15.5); LYMPHOCYTES % (AUTO) 13.7 % (13-45); MEAN CORPUSCULAR HEMOGLOBIN 24.6 pg (27.0-33.4); MEAN CORPUSCULAR HGB CONC 32.9 g/dL (32.0-36.0); MEAN CORPUSCULAR VOLUME 75 fl (80-97); PLATELET COUNT 337 10^3/uL (150-450); RED BLOOD COUNT 3.95 10^6/uL (3.72-5.28); RED CELL DISTRIBUTION WIDTH 15.1 % (11.5-14.0); SEGMENTED NEUTROPHILS % (AUTO) 79.8 % (42-78); TOTAL CELLS COUNTED % (AUTO) 100 %; WHITE BLOOD COUNT 15.4 10^3/uL (4.0-10.5)
[2018-09-10] MEDS ORDERED: IBUPROFEN 800 MG TABLET PO SCH (06:00)
[2018-09-10] MEDS: IBUPROFEN 800 MG TABLET PO SCH ×3 (06:18→22:40)
[2018-09-10] MEDS: MORPHINE SULFATE 10 MG/ML INJ IV SCH ×3 (06:41→17:43)
[2018-09-10] MEDS ORDERED: DOCUSATE SODIUM 100 MG CAPSULE PO SCH (10:00)
[2018-09-10] MEDS ORDERED: PRENATAL VITAMIN W DHA CAPSULE PO SCH (10:00)
[2018-09-10] MEDS ORDERED: FERROUS SULFATE 325 MG TABLET PO SCH (10:00)
[2018-09-10] MEDS: FERROUS SULFATE 325 MG TABLET PO SCH ×2 (10:06→17:45)
[2018-09-10] MEDS: SENNOSIDES/DOCUSATE 8.6-50 MG 1 EACH TABLET PO SCH (10:06)
[2018-09-10] MEDS: FAMOTIDINE 20 MG TABLET PO SCH ×2 (10:06→22:40)
[2018-09-10] MEDS: PRENATAL VITAMIN W DHA CAPSULE PO SCH (10:07)
[2018-09-10] MEDS: DOCUSATE SODIUM 100 MG CAPSULE PO SCH ×2 (10:07→17:44)
--- NOTE | 2018-09-10 13:04 | PDOC PROGRESS REPORT ---
Subjective-OB Progress Note for:: 09/10/18 Subjective: Doing well. Physical Exam (OB) Vital Signs: Temp Pulse Resp BP Pulse Ox 98.1 F 73 14 109/57 L 97 09/10/18 07:24 09/10/18 07:24 09/10/18 07:24 09/10/18 07:24 09/10/18 07:24 Intake & Output 09/09/18 09/10/18 09/11/18 06:59 06:59 06:59 Intake Total 400 Balance 400 Weight 114.5 kg - General General Appearance: Appears well - fundus firm, ext are nontender - PIH/Pre-Eclampsia Clonus: Negative Headache: Absent Epigastric Pain: No Visual Changes: No - Lochia Lochia Amount: Small 10-25 ml Lochia Color: Rubra/Red - Abdomen Description: Soft, Round Hernia Present: No Fundal Description: Firm, Midline Fundal Height: u/u - u/2 Objective-Diagnostic Laboratory: 09/10/18 02:40 09/10/18 09/10/18 02:40 02:40 WBC 15.4 H RBC 3.95 Hgb 9.7 L Hct 29.5 L MCV 75 L MCH 24.6 L MCHC 32.9 RDW 15.1 H Plt Count 337 Seg Neutrophils % 79.8 H Lymphocytes % 13.7 Monocytes % 6.0 Eosinophils % 0.3 Basophils % 0.2 Absolute Neutrophils 12.3 H Absolute Lymphocytes 2.1 Absolute Monocytes 0.9 Absolute Eosinophils 0.0 Absolute Basophils 0.0 Blood Type B POSITIVE Antibody Screen NEGATIVE Assessment and Plan(PN) - Assessment and Plan (1) Vaginal delivery Is this a current diagnosis for this admission?: Yes Plan:: Continue pp care - Time Spent with Patient Time with patient: Less than 15 minutes
[2018-09-10 16:50] LABS: URINE AMPHETAMINES SCREEN NEGATIVE; URINE BARBITURATES SCREEN NEGATIVE; URINE BENZODIAZEPINES SCREEN NEGATIVE; URINE COCAINE SCREEN NEGATIVE; URINE MARIJUANA (THC) SCREEN NEGATIVE; URINE METHADONE SCREEN NEGATIVE; URINE PHENCYCLIDINE SCREEN NEGATIVE
[2018-09-10] MEDS: LORAZEPAM INJ 2 MG/1 ML VIAL IV PRN (17:55)
[2018-09-11] MEDS: MORPHINE SULFATE 10 MG/ML INJ IV SCH ×3 (00:43→12:29)
[2018-09-11] MEDS: LORAZEPAM INJ 2 MG/1 ML VIAL IV PRN ×2 (01:36→08:15)
[2018-09-11] MEDS: IBUPROFEN 800 MG TABLET PO SCH ×2 (06:24→13:29)
[2018-09-11 07:03] LABS: HEMATOCRIT 28.2 % (36.0-47.0); HEMOGLOBIN 9.4 g/dL (12.0-15.5); MEAN CORPUSCULAR HEMOGLOBIN 24.8 pg (27.0-33.4); MEAN CORPUSCULAR HGB CONC 33.2 g/dL (32.0-36.0); MEAN CORPUSCULAR VOLUME 75 fl (80-97); PLATELET COUNT 379 10^3/uL (150-450); RED BLOOD COUNT 3.77 10^6/uL (3.72-5.28); RED CELL DISTRIBUTION WIDTH 15.1 % (11.5-14.0); WHITE BLOOD COUNT 12.2 10^3/uL (4.0-10.5)
[2018-09-11 09:14] VITALS: BP 118/75
[2018-09-11] MEDS: FERROUS SULFATE 325 MG TABLET PO SCH (09:36)
[2018-09-11] MEDS: SENNOSIDES/DOCUSATE 8.6-50 MG 1 EACH TABLET PO SCH (09:36)
[2018-09-11] MEDS: DOCUSATE SODIUM 100 MG CAPSULE PO SCH (09:36)
[2018-09-11] MEDS: PRENATAL VITAMIN W DHA CAPSULE PO SCH (09:36)
[2018-09-11] MEDS: FAMOTIDINE 20 MG TABLET PO SCH (09:36)
--- NOTE | 2018-09-11 09:37 | PDOC PROGRESS REPORT ---
Subjective-OB Progress Note for:: 09/11/18 - PP Day #1, , pt desires to go home today. Admits to daily Heroin use during the . Baby in the NICN. Elementary Secretary to go see pt this morning. B+, rubella immune. Physical Exam (OB) Vital Signs: Temp Pulse Resp BP Pulse Ox 98.0 F 106 H 18 118/75 99 09/11/18 07:36 09/11/18 07:36 09/11/18 07:36 09/11/18 07:36 09/11/18 07:36 Intake & Output 09/10/18 09/11/18 09/12/18 06:59 06:59 06:59 Intake Total 1120 Balance 1120 Weight 114.5 kg 57.7 kg - General General Appearance: Appears well, Anxious In distress: None - PIH/Pre-Eclampsia Clonus: Negative Headache: Absent Epigastric Pain: No Visual Changes: No - Lochia Lochia Amount: Small 10-25 ml Lochia Color: Rubra/Red - Abdomen Description: Soft, Round Hernia Present: No Fundal Description: Firm, Midline Fundal Height: u/u - u/2 - Respiratory Respiratory Status: No respiratory distress - Abdominal Distension: No distension Tenderness: Nontender - Genitourinary Genitourinary Note: voiding - Extremities Upper extremity: Normal inspection Lower extremities: Normal inspection - Neurological Cognition: Normal Orientation: AAOx4 - Psychological Associated symptoms: Normal affect, Restlessness - Skin Skin Temperature: Warm Skin Moisture: Dry Objective-Diagnostic Laboratory: 09/11/18 06:42 09/11/18 06:42 WBC 12.2 H RBC 3.77 Hgb 9.4 L Hct 28.2 L MCV 75 L MCH 24.8 L MCHC 33.2 RDW 15.1 H Plt Count 379 Assessment and Plan(PN) - Assessment and Plan (1) Cholestasis during Qualifiers: Trimester: third trimester Qualified Code(s): O26.613 - Liver and biliary tract disorders in , third trimester; K83.1 - Obstruction of bile duct Is this a current diagnosis for this admission?: Yes (2) Depression with anxiety Is this a current diagnosis for this admission?: Yes (3) Encounter for induction of labor Is this a current diagnosis for this admission?: Yes (4) HSV infection in Is this a current diagnosis for this admission?: Yes (5) History of heroin abuse Is this a current diagnosis for this admission?: Yes (6) Vaginal delivery Is this a current diagnosis for this admission?: Yes - Time Spent with Patient Time with patient: Less than 15 minutes Medications reviewed and adjusted accordingly: Yes - Disposition Anticipated Discharge: Home Within: within 24 hours
[2018-09-11] MEDS ORDERED: MORPHINE SULFATE 10 MG/ML INJ IM ONE (13:02)
--- NOTE | 2018-09-11 13:07 | PDOC DISCHARGE SUMMARY ---
Final Diagnosis Discharge Date: 09/10/18 - PP Day #1, desires to go home today. hx of Heroin use. [employer] Weig[employer] in to see pt today. pt has appointment to start Subuxone tomorrow. - Final Diagnosis (1) Cholestasis during Is this a current diagnosis for this admission?: Yes (2) Depression with anxiety Is this a current diagnosis for this admission?: Yes (3) Encounter for induction of labor Is this a current diagnosis for this admission?: Yes (4) HSV infection in Is this a current diagnosis for this admission?: Yes (5) History of heroin abuse Is this a current diagnosis for this admission?: Yes (6) Vaginal delivery Is this a current diagnosis for this admission?: Yes Discharge Data - Discharge Medication Prescriptions: Ibuprofen [Motrin 800 mg Tablet] 800 mg PO Q8 #30 tablet Home Medications: Ibuprofen [Motrin 800 mg Tablet] 800 mg PO Q8 #30 tablet 09/11/18 Reason(s) for Admission: Onset of Labor Intrapartum Procedure(s): Spontaneous Vaginal Delivery - Diagnosis Test Laboratory: Temp Pulse Resp BP Pulse Ox 98.0 F 106 H 18 118/75 99 09/11/18 07:36 09/11/18 07:36 09/11/18 07:36 09/11/18 07:36 09/11/18 07:36 09/10/18 09/10/18 09/11/18 02:40 12:25 06:42 RBC 3.95 3.77 Hgb 9.7 L 9.4 L Hct 29.5 L 28.2 L Urine Opiates Screen UNCONFIRMED POSITIVE - Discharge information/Instructions Discharge Activity: Activity As Tolerated, No Lifting Over 10 Pounds, Pelvic Rest Discharge Diet: Regular Disposition: HOME, SELF-CARE Follow up with: [facility] in: 4, Weeks
[2018-09-12 08:03] LABS: HSV-I IGG AB 27.8 index (0.00-0.90)
--- NOTE | 2018-09-16 06:59 | PDOC DELIVERY SUMMARY ---
Delivery Summary - Maternal Hx : III Hx Para: II Hx # Term Pregnancies: 2 Number of Living Children: 2 Risk Factors: Other - daily heroin abuse Ruptured Membranes: SROM Fluids: Clear - Delivery Labor: Precipitous-Less Than 3 Hours Presentation: Vertex Heart Rate Monitoring: Externally Uterine Contraction Monitoring: External Support Person Present: Yes Placenta: Within Normal Limits Number of Vessels (Cord): 3 Nuchal Cord: No Delivery of Placenta Date: 09/10/18 Estimated Blood Loss: 200 - Medications Type of Anesthesia:: Other - none - Delivery Personnel MD: CLEMENTINE SIMONS
== END 2018-09-11 15:25 | disposition home or self-care (01) | DRG 805 ==
LOC: LC 01:24 → LR 01:45 → 2S 03:54
PROVIDERS: ADMIT Obstetrics & Gynecology; ATTEND Obstetrics & Gynecology
PROC: 10E0XZZ Delivery of Products of Conception, External Approach (ICD-10-PCS; principal; 2018-09-10)
PROC: 4A1HXCZ Monitoring of Products of Conception, Cardiac Rate, External Approach (ICD-10-PCS; 2018-09-10)
DX: O99.344 Other mental disorders complicating childbirth (principal); K83.1 Obstruction of bile duct; Z37.0 Single live birth; O99.323 Drug use complicating pregnancy, third trimester; O26.613 Liver and biliary tract disorders in pregnancy, third trimester; O98.32 Other infections with a predominantly sexual mode of transmission complicating childbirth; F41.8 Other specified anxiety disorders; A60.04 Herpesviral vulvovaginitis; O62.3 Precipitate labor; F11.10 Opioid abuse, uncomplicated; Z88.0 Allergy status to penicillin; Z3A.37 37 weeks gestation of pregnancy
CPT/HCPCS: 36415; 80307; 80361; 85025; 85027; 86592; 86695; 86850; 86900; 86901; 88307; J2060; J2270; J2590; J3490

== ENCOUNTER 2019-08-16 12:42 | Emergency (ER) | payer MEDICAID ==
[2019-08-16] MEDS ORDERED: ONDANSETRON HCL INJ/PF 4 MG/2 ML SDV IV ONE (13:04)
[2019-08-16] MEDS ORDERED: NORMAL SALINE 1000 ML 1,000 ML IV ONE (13:05)
[2019-08-16] MEDS ORDERED: ACETAMINOPHEN 325 MG TABLET PO ONE (13:07)
--- NOTE | 2019-08-16 13:07 | ER Document Report ---
ED Medical Screen (RME) - General Chief Complaint: Abdominal Pain Stated Complaint: ABDOMINAL PAIN Time Seen by Provider: 08/16/19 13:00 Primary Care Provider: PEYTON RESENDIZ MD [Primary Care Provider] - Follow up as needed TRAVEL OUTSIDE OF THE [place] IN LAST 30 DAYS: No - HPI Notes: 08/16/19 13:06 Patient is a 24-year-old female no significant past medical history who presents complaining of fever, nausea, right lower quadrant abdominal pain that began 2 days ago. The pain does not radiate. Patient states that she did start her menstrual cycle around the same time. No other vaginal odor or discharge. She is urinating normally and having normal bowel movements. No surgical history to her abdomen. Denies . I did call and speak with radiology, Dr. Bhakta, who would like IV and p.o. contrast for the CT scan. I have treated and performed a rapid initial assessment of this patient. A comprehensive ED assessment and evaluation of the patient, analysis of test results and completion of medical decision making process will be conducted by additional ED providers. PHYSICAL EXAMINATION: GENERAL: Well-appearing, well-nourished and in no acute distress. A&Ox4. Answers questions appropriately. Abdomen: Limited exam in triage, but noted significant tenderness in the right lower quadrant palpation. - Related Data Allergies/Adverse Reactions: amoxicillin [Amoxicillin] Allergy (Verified 09/10/18 04:48) Hives Penicillins Allergy (Verified 09/10/18 04:48) Home Medications: Subutex Past Medical History Renal/ Medical History: Reports: Hx Pelvic Inflammatory Disease. Denies: Hx Peritoneal Dialysis Psychiatric Medical History: Reports: Hx Anxiety, Hx Bipolar Disorder, Hx Depression - Immunizations Immunizations up to date: No Hx Diphtheria, Pertussis, Tetanus Vaccination: No Physical Exam - Vital signs Vitals: Temp Pulse Resp BP Pulse Ox 101.7 F H 114 H 16 118/71 99 08/16/19 12:45 08/16/19 12:45 08/16/19 12:45 08/16/19 12:45 08/16/19 12:45 Course - Vital Signs Vital signs: Temp Pulse Resp BP Pulse Ox 101.7 F H 114 H 16 118/71 99 08/16/19 12:45 08/16/19 12:45 08/16/19 12:45 08/16/19 12:45 08/16/19 12:45 Doctor's Discharge - Discharge Referrals: PEYTON RESENDIZ MD [Primary Care Provider] - Follow up as needed
[2019-08-16] MEDS ORDERED: MORPHINE SULFATE 10 MG/ML INJ IV ONE ×2 (13:14→14:45)
--- NOTE | 2019-08-16 13:21 | ER Document Report ---
ED General - General Chief Complaint: Abdominal Pain Stated Complaint: ABDOMINAL PAIN Time Seen by Provider: 08/16/19 13:00 Primary Care Provider: PEYTON RESENDIZ MD [ACTIVE STAFF] - Follow up as needed Notes: CHIEF COMPLAINT: Right lower quadrant pain and fever HPI: 24-year-old female presenting to the emergency department complaining of abdominal pain that began 3 days ago. Patient states it started as a gener alized discomfort and is now progressed specifically the right lower quadrant pain. Hurts to walk or bend at the waist. Developed fever last night. Has had nausea no vomiting. Patient is currently on her menstrual cycle, initially thought the discomfort might be menstrual cramping. Denies dysuria. Does complain of some discomfort into the back. Patient does indicate she is on Subutex ROS: See HPI - all other systems were reviewed and are otherwise negative Constitutional: + fever Eyes: no drainage, no blurred vision ENT: no runny nose, no sore throat Cardiovascular: no chest pain Resp: no SOB, no cough GI: no vomiting, no diarrhea, + abdominal pain, positive nausea : no dysuria Integumentary: no rash Allergy: no hives Musculoskeletal: no extremity pain or swelling Neurological: no numbness/tingling, no weakness MEDICATIONS: I agree with the patient medications as charted by the RN. ALLERGIES: I agree with the allergies as charted by the RN. PAST MEDICAL HISTORY/PAST SURGICAL HISTORY: Reviewed and agree as charted by RN. SOCIAL HISTORY: Reviewed and agree as charted by RN. FAMILY HISTORY: No significant familial comorbid conditions directly related to patient complaint EXAM: Reviewed vital signs as charted by RN. CONSTITUTIONAL: Alert and oriented and responds appropriately to questions. Well-appearing; well-nourished, moderate distress secondary to discomfort, difficulty with gait secondary to pain in the right lower quadrant with movement of the right leg HEAD: Normocephalic; atraumatic EYES: PERRL; Conjunctivae clear, sclerae non-icteric ENT: normal nose; no rhinorrhea; moist mucous membranes; pharynx without lesions noted, no uvula edema or deviation, no tonsillar hypertrophy, phonation normal NECK: Supple without meningismus; non-tender; no cervical lymphadenopathy, no masses CARD: RRR; no murmurs, no clicks, no rubs, no gallops; symmetric distal pulses RESP: Normal chest excursion without splinting or tachypnea; breath sounds clear and equal bilaterally; no wheezes, no rhonchi, no rales, pulse oximetry ABD/GI: Normal bowel sounds; non-distended; soft, positive Rovsing. Positive obturator. Positive psoas. Moderate tenderness in the right lower quadrant with rebound and guarding; no palpable organomegaly or masses. BACK: The back appears normal and is non-tender to palpation, there is no CVA tenderness EXT: Normal ROM in all joints; non-tender to palpation; no cyanosis, no effusions, no edema SKIN: Normal color for age and race; warm; dry; good turgor; no acute lesions noted NEURO: Moves all extremities equally; Motor and sensory function intact PSYCH: The patient's mood and manner are appropriate. Grooming and personal hygiene are appropriate. MDM: 24-year-old female presenting for progressive right lower quadrant pain over the last 3 days fever onset last night. Generalized abdominal discomfort that is now focal in the right lower quadrant. Suspect appendicitis. Differential would include pyelonephritis, TOA. Initial screening labs, CT imaging to evaluate for appendicitis TRAVEL OUTSIDE OF THE [place] IN LAST 30 DAYS: No - Related Data Allergies/Adverse Reactions: amoxicillin [Amoxicillin] Allergy (Verified 09/10/18 04:48) Hives Penicillins Allergy (Verified 09/10/18 04:48) Home Medications: Subutex Past Medical History - Social History Smoking Status: Current Every Day Smoker Family History: Reviewed & Not Pertinent, Other - ptsd, bipolar, alcoholism Patient has suicidal ideation: No Patient has homicidal ideation: No Renal/ Medical History: Reports: Hx Pelvic Inflammatory Disease. Denies: Hx Peritoneal Dialysis Psychiatric Medical History: Reports: Hx Anxiety, Hx Bipolar Disorder, Hx Depression - Immunizations Immunizations up to date: No Hx Diphtheria, Pertussis, Tetanus Vaccination: No Physical Exam - Vital signs Vitals: Temp Pulse Resp BP Pulse Ox 101.7 F H 114 H 16 118/71 99 08/16/19 12:45 08/16/19 12:45 08/16/19 12:45 08/16/19 12:45 08/16/19 12:45 Course - Re-evaluation Re-evalutation: 08/16/19 15:58 CT imaging shows acute pyelonephritis. Patient looks reasonably well at this time. Will give Rocephin here. She has no known allergy to cephalosporins. If patient tolerates the Rocephin will discharge on Omnicef, short course of pain medication given her history. Patient has a primary care provider for 2-day follow-up, we discussed strict return precautions for worsening symptoms - Vital Signs Vital signs: Temp Pulse Resp BP Pulse Ox 98.5 F 92 16 103/59 L 99 08/16/19 16:19 08/16/19 16:19 08/16/19 16:19 08/16/19 16:19 08/16/19 16:19 - Laboratory Result Diagrams: 08/16/19 13:40 08/16/19 13:40 Laboratory results interpreted by me: 08/16/19 08/16/19 08/16/19 13:40 13:40 13:40 WBC 13.7 H Lymph % (Auto) 11.8 L Absolute Neuts (auto) 10.9 H Seg Neutrophils % 79.4 H Sodium 134.5 L Potassium 3.4 L Chloride 97 L AST 42 H Urine Protein 30 H Urine Ketones 20 H Urine Blood SMALL H Leukocyte Esterase Rfl LARGE H Discharge - Discharge Clinical Impression: Acute pyelonephritis Fever Qualifiers: Fever type: unspecified Qualified Code(s): R50.9 - Fever, unspecified Condition: Stable Disposition: HOME, SELF-CARE Instructions: Pyelonephritis (OM) Additional Instructions: Take the antibiotics as prescribed. Pain medications as prescribed, keep in mind that these are narcotics. Follow-up with your primary care provider within 2 days for recheck and reevaluation call for appointment. Continue to medicate fever with ibuprofen consistently. If you have worsening or uncontrolled pain, worsening fevers or vomiting return for reevaluation as discussed Prescriptions: Ibuprofen [Motrin 600 Mg Tablet] 600 mg PO TID #15 tablet Cefdinir [Omnicef 300 mg Capsule] 1 cap PO BID #30 capsule Oxycodone HCl/Acetaminophen [Percocet 5-325 mg Tablet] 1 tab PO Q4H PRN #15 tablet PRN Reason: Referrals: PEYTON RESENDIZ MD [ACTIVE STAFF] - Follow up as needed
[2019-08-16 14:21] LABS: ABSOLUTE LYMPHOCYTES (AUTO) 1.6 10^3/uL (0.5-4.7); ABSOLUTE MONOCYTES (AUTO) 1.2 10^3/uL (0.1-1.4); ABSOLUTE NEUT (AUTO) 10.9 10^3/uL (1.7-8.2); BASOPHILS % (AUTO) 0.2 % (0-2); EOSINOPHILS % (AUTO) 0.1 % (0-6); HEMOGLOBIN 13.7 g/dL (12.0-15.5); LYMPHOCYTES % (AUTO) 11.8 % (13-45); MEAN CORPUSCULAR HEMOGLOBIN 27.8 pg (27.0-33.4); MEAN CORPUSCULAR HGB CONC 34.2 g/dL (32.0-36.0); MEAN CORPUSCULAR VOLUME 81 fl (80-97); MONOCYTES % (AUTO) 8.5 % (3-13); PLATELET COUNT 237 10^3/uL (150-450); RED BLOOD COUNT 4.92 10^6/uL (3.72-5.28); RED CELL DISTRIBUTION WIDTH 13.2 % (11.5-14.0); SEGMENTED NEUTROPHILS % (AUTO) 79.4 % (42-78); TOTAL CELLS COUNTED % (AUTO) 100 %; WHITE BLOOD COUNT 13.7 10^3/uL (4.0-10.5)
[2019-08-16 14:23] LABS: ALBUMIN 4.3 g/dL (3.5-5.0); ALKALINE PHOSPHATASE 77 U/L (38-126); ANION GAP 12 (5-19); ASPARTATE AMINO TRANSFERASE 42 U/L (14-36); BILIRUBIN,DIRECT 0.2 mg/dL (0.0-0.4); BILIRUBIN,TOTAL 0.5 mg/dL (0.2-1.3); BLOOD UREA NITROGEN 9 mg/dL (7-20); CALCIUM 9.5 mg/dL (8.4-10.2); CARBON DIOXIDE 26 mmol/L (22-30); CHLORIDE 97 mmol/L (98-107); GLUCOSE 103 mg/dL (75-110); POTASSIUM 3.4 mmol/L (3.6-5.0); TOTAL PROTEIN 7.5 g/dL (6.3-8.2)
[2019-08-16 14:37] LABS: APPEARANCE,URINE SLIGHTLY-CLOUDY; BILIRUBIN,URINE NEGATIVE (NEGATIVE); COLOR,URINE YELLOW; GLUCOSE, URINE NEGATIVE (NEGATIVE); KETONES,URINE 20 mg/dL (NEGATIVE); PROTEIN,URINE 30 mg/dL (NEGATIVE); URINE SPECIFIC GRAVITY 1.005; UROBILINOGEN,URINE NEGATIVE mg/dL (<2.0)
--- NOTE | 2019-08-16 15:27 | RADIOLOGY REPORT (SQ) ---
EXAM DESCRIPTION: CT ABD/PELVIS WITH IV ORAL COMPLETED DATE/TIME: 08/16/2019 3:02 pm REASON FOR STUDY: RLQ pain, fever, r/o appendicitis. COMPARISON: CT abdomen and pelvis 11/20/2006. TECHNIQUE: CT scan of the abdomen and pelvis performed using helical scanning technique with dynamic intravenous contrast injection. Oral contrast was also administered. Images reviewed with lung, sof t tissue, and bone windows. Reconstructed coronal and sagittal MPR images reviewed. Delayed images fo r evaluation of the urinary system also acquired. All images stored on PACS. All CT scanners at this facility use dose modulation, iterative reconstruction, and/or weight based d osing when appropriate to reduce radiation dose to as low as reasonably achievable (ALARA). [facility]: Dose Right [facility]: CareDose [facility]: Dose Right [facility]: Teradose 4D [facility]: Jellynote CONTRAST TYPE AND DOSE: contrast/concentration: Isovue 350.00 mg/ml; Total Contrast Delivered: 57.0 ml; Total Saline Delivered: 65.0 ml RENAL FUNCTION: None required. The patient is less than 50 years old. RADIATION DOSE: CT Rad equipment meets quality standard of care and radiation dose reduction techniq ues were employed. CTDIvol: NaN - NaN mGy. DLP: 0 mGy-cm.. LIMITATIONS: None. FINDINGS: LOWER CHEST: No consolidation or pleural effusion. LIVER: Subcentimeter hypodensity at the arm left hepatic lobe is too small to be adequately character ized. No dilated ducts. SPLEEN: Normal size. No focal lesions. PANCREAS: No significant calcifications. No adjacent inflammation or peripancreatic fluid collections . Pancreatic duct not dilated. GALLBLADDER: No identified stones by CT criteria. No inflammatory changes to suggest cholecystitis. ADRENAL GLANDS: No significant masses or asymmetry. RIGHT KIDNEY AND URETER: There is mild right-sided perinephric stranding. There is an ill-defined hy podense area at the inferior pole of the right kidney measuring 1.4 x 1.8 cm. There is peripheral en hancement of the right renal pelvis and right ureter. No hydronephrosis or hydroureter. LEFT KIDNEY AND URETER: No hydronephrosis or hydroureter. AORTA AND VESSELS: No abdominal aortic aneurysm or evidence for acute dissection RETROPERITONEUM: No retroperitoneal adenopathy, hemorrhage or masses. BOWEL AND PERITONEAL CAVITY: No dilated bowel loops. No free fluid or free air. Moderate amount of stool noted at the colon. APPENDIX: Normal. PELVIS: The urinary bladder is distended. The uterus is present. There is a tampon distending the v agina. There is trace free pelvic fluid. ABDOMINAL WALL: No hernia. BONES: No acute findings. IMPRESSION: 1. Peripheral enhancement of the right renal pelvis and right ureter, suggestive of acu te infection/ inflammation such as pyelitis and urethritis. Mild right-sided perinephric stranding w ith an ill-defined hypodense area at the inferior pole of the right kidney, may be secondary to acute pyelonephritis; follow-up imaging after treatment recommended to ensure resolution exclude a differe nt etiology. 2. Moderate amount of stool at the colon. Please correlate for constipation. 3. Trace free pelvic fluid, may be physiologic for the patient's age. TECHNICAL DOCUMENTATION: JOB ID: [id number] Quality ID # [id number]: Final reports with documentation of one or more dose reduction techniques (e.g., Au tomated exposure control, adjustment of the mA and/or kV according to patient size, use of iterative reconstruction technique) 2010 [employer]- All Rights Reserved Reading location - IP/workstation name: [email or web address]
[2019-08-16] MEDS ORDERED: CEFTRIAXONE 1 GM/D5W RTU 1 GM/50 ML RTUPB IV ONE (15:33)
[2019-08-16 16:20] VITALS: BP 103/59
[2019-08-16] MEDS ORDERED: OXYCODONE-ACETAMINOPHEN 5-325 MG TABLET PO ONE (16:24)
== END 2019-08-16 16:52 | disposition home or self-care (01) ==
LOC: ER 12:42
DX: N10 Acute pyelonephritis (principal); R50.9 Fever, unspecified; R10.31 Right lower quadrant pain; R10.813 Right lower quadrant abdominal tenderness; R11.0 Nausea; F17.200 Nicotine dependence, unspecified, uncomplicated; Z79.891 Long term (current) use of opiate analgesic; Z88.0 Allergy status to penicillin
CPT/HCPCS: 96376; 99284; 96361; 96375; 96365; 36415; 87040; 87086; 83605; 83690; 85025; 81025; 87088; 80053; 81001; 87186; 74177; J3490; J2270; J2405; J7030; J0696

== ENCOUNTER 2020-04-20 15:38 | Emergency (ER) | payer MEDICAID ==
[2020-04-20 15:50] VITALS: BP 116/65
[2020-04-20] MEDS ORDERED: METOCLOPRAMIDE HCL INJ/PF 10 MG/2 ML SDV IV ONE (16:31)
[2020-04-20] MEDS ORDERED: NORMAL SALINE 1000 ML 1,000 ML IV ONE (16:33)
--- NOTE | 2020-04-20 16:35 | ER Document Report ---
ED Medical Screen (RME) - General Chief Complaint: Abdominal Pain Stated Complaint: ABDOMINAL PAIN/NAUSEA 12 WKS Time Seen by Provider: 04/20/20 16:13 TRAVEL OUTSIDE OF THE [place]. IN LAST 30 DAYS: No - HPI Notes: 04/20/20 16:34 24-year-old female who states that she is currently with her third to the emergency department with complaints of nausea vomiting and pelvic cramping for the past week. She is having having difficulty keeping anything down. Denies any fevers, chills, chest pain, shortness of breath, vaginal bleeding. She is not had a confirmed IUP on ultrasound with this yet. Admits to some slight vaginal discharge. Denies any urinary complaints. I performed a brief medical screening exam on the patient determined that the patient needs further evaluation and management by main side provider. I have placed initial orders to help expedite care. - Related Data Allergies/Adverse Reactions: amoxicillin [Amoxicillin] Allergy (Verified 09/10/18 04:48) Hives Penicillins Allergy (Verified 09/10/18 04:48) Past Medical History - Social History Chew tobacco use (# tins/day): No Frequency of alcohol use: None Drug Abuse: None Renal/ Medical History: Reports: Hx Pelvic Inflammatory Disease. Denies: Hx Peritoneal Dialysis Psychiatric Medical History: Reports: Hx Anxiety, Hx Bipolar Disorder, Hx Depression - Immunizations Immunizations up to date: No Hx Diphtheria, Pertussis, Tetanus Vaccination: No Physical Exam - Vital signs Vitals: Temp 99.1 F 04/20/20 15:40 Course - Vital Signs Vital signs: Temp Pulse Resp BP Pulse Ox 99.1 F 69 16 116/65 98 04/20/20 15:48 04/20/20 15:48 04/20/20 15:48 04/20/20 15:48 04/20/20 15:48
[2020-04-20 16:59] LABS: ABSOLUTE LYMPHOCYTES (AUTO) 2.7 10^3/uL (0.5-4.7); ABSOLUTE MONOCYTES (AUTO) 0.6 10^3/uL (0.1-1.4); ABSOLUTE NEUT (AUTO) 5.2 10^3/uL (1.7-8.2); BASOPHILS % (AUTO) 0.1 % (0-2); EOSINOPHILS % (AUTO) 0.6 % (0-6); HEMATOCRIT 35.7 % (36.0-47.0); HEMOGLOBIN 12.3 g/dL (12.0-15.5); LYMPHOCYTES % (AUTO) 31.8 % (13-45); MEAN CORPUSCULAR HEMOGLOBIN 27.3 pg (27.0-33.4); MEAN CORPUSCULAR HGB CONC 34.5 g/dL (32.0-36.0); MEAN CORPUSCULAR VOLUME 79 fl (80-97); MONOCYTES % (AUTO) 6.5 % (3-13); PLATELET COUNT 295 10^3/uL (150-450); RED BLOOD COUNT 4.52 10^6/uL (3.72-5.28); RED CELL DISTRIBUTION WIDTH 15.8 % (11.5-14.0); TOTAL CELLS COUNTED % (AUTO) 100 %; WHITE BLOOD COUNT 8.6 10^3/uL (4.0-10.5)
[2020-04-20 17:16] LABS: APPEARANCE,URINE SLIGHTLY-CLOUDY; BILIRUBIN,URINE NEGATIVE (NEGATIVE); COLOR,URINE YELLOW; GLUCOSE, URINE NEGATIVE (NEGATIVE); KETONES,URINE 80 mg/dL (NEGATIVE); LEUKOCYTE ESTERASE,URINE NEGATIVE (NEGATIVE); NITRITE,URINE NEGATIVE (NEGATIVE); PROTEIN,URINE 30 mg/dL (NEGATIVE); URINE SPECIFIC GRAVITY 1.028
[2020-04-20 17:18] LABS: ALBUMIN 4.4 g/dL (3.5-5.0); ALKALINE PHOSPHATASE 42 U/L (38-126); ANION GAP 11 (5-19); ASPARTATE AMINO TRANSFERASE 39 U/L (14-36); BILIRUBIN,DIRECT 0.2 mg/dL (0.0-0.4); BILIRUBIN,TOTAL 0.5 mg/dL (0.2-1.3); BLOOD UREA NITROGEN 6 mg/dL (7-20); CALCIUM 9.6 mg/dL (8.4-10.2); CARBON DIOXIDE 23 mmol/L (22-30); CHLORIDE 102 mmol/L (98-107); GLUCOSE 89 mg/dL (75-110)
--- NOTE | 2020-04-20 17:52 | RADIOLOGY REPORT (SQ) ---
EXAM DESCRIPTION: U/S OB 14+ TRNABD 1GES W/O DOP IMAGES COMPLETED DATE/TIME: 04/20/2020 5:41 pm REASON FOR STUDY: pelvic cramping, COMPARISON: None. TECHNIQUE: Limited transabdominal grayscale ultrasound for evaluation of specific requested obstetri leonid parameters. LIMITATIONS: None. FINDINGS: CERVICAL LENGTH: 2.8 cm Closed. JIGAR: LVP--- 7.8 cm X 3.2 cm. FHR: 145 beats per minute. PRESENTATION: Variable. PLACENTA: Anterior. ANATOMY: Not assessed OTHER: BRE: 10/17/2020 EGA: 14 weeks 2 days. IMPRESSION: LIMITED OBSTETRICAL ULTRASOUND WITH MEASURED PARAMETERS DELINEATED ABOVE. Trimester of : Second trimester - 13 weeks 1 day to 27 weeks 6 days. TECHNICAL DOCUMENTATION: JOB ID: [id number] 2010 [employer]- All Rights Reserved Reading location - IP/workstation name: [email or web address]
== END 2020-04-20 21:25 | disposition left against medical advice (07) ==
LOC: ER 15:38
DX: O21.9 Vomiting of pregnancy, unspecified (principal); O26.891 Other specified pregnancy related conditions, first trimester; R10.2 Pelvic and perineal pain; N89.8 Other specified noninflammatory disorders of vagina; Z88.0 Allergy status to penicillin; Z87.42 Personal history of other diseases of the female genital tract; Z3A.12 12 weeks gestation of pregnancy; Z53.20 Procedure and treatment not carried out because of patient's decision for unspecified reasons
CPT/HCPCS: 36415; 76805; 80053; 81001; 83735; 84702; 85025; 99281

== ENCOUNTER 2020-08-02 14:06 | Emergency (ER) | payer MEDICAID ==
--- NOTE | 2020-08-02 14:26 | ER Document Report ---
ED Medical Screen (RME) - General Chief Complaint: Numbness of Arm Stated Complaint: NUMBNESS Time Seen by Provider: 08/02/20 14:14 TRAVEL OUTSIDE OF THE [place] IN LAST 30 DAYS: No - HPI Notes: 08/02/20 14:24 24-year-old female 30 weeks 4 days G4, P3 who is currently taking Subutex, promethazine and Vistaril presents to the emergency room today for sudden onset right arm numbness and tingling that started around 11 AM and has been persistent since. Denies any injury to the shoulder or neck. Patient states she also This morning with bruising to the right side of her face, denies any trauma or assault. Patient reports she did have a glucose tolerance test done yesterday and reports that her blood sugar was too high and she thus failed. Patient reports she is having some shortness of breath denies any chest pain, some nausea but denies any vomiting, abdominal pain. Denies any vaginal bleeding or vaginal discharge. [facility]. I have greeted and performed a rapid initial assessment of this patient. A comprehensive ED assessment and evaluation of the patient, analysis of test results and completion of the medical decision making process will be conducted by additional ED providers. PHYSICAL EXAMINATION: GENERAL: Well-appearing, well-nourished and in no acute distress. HEAD: Atraumatic, normocephalic. EYES: Pupils equal round extraocular movements intact, conjunctiva are normal. NECK: Normal range of motion. No pain on palpation CV: s1, s2 regular LUNGS: No respiratory distress Musculoskeletal: Normal range of motion. 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 SKIN: Warm, Dry, normal turgor, no rashes or lesions noted. The patient was evaluated during a global COVID-19 pandemic and that diagnosis was suspected/considered upon their initial presentation. Their evaluation, treatment and testing was consistent with current guidelines for patients who present with complaints or symptoms and may be related to COVID-19. - Related Data Allergies/Adverse Reactions: amoxicillin [Amoxicillin] Allergy (Verified 09/10/18 04:48) Hives Penicillins Allergy (Verified 09/10/18 04:48) Home Medications: Subutex Past Medical History - Social History Chew tobacco use (# tins/day): No Frequency of alcohol use: None Drug Abuse: None Renal/ Medical History: Reports: Hx Pelvic Inflammatory Disease. Denies: Hx Peritoneal Dialysis Psychiatric Medical History: Reports: Hx Anxiety, Hx Bipolar Disorder, Hx Depression - Immunizations Immunizations up to date: No Hx Diphtheria, Pertussis, Tetanus Vaccination: No
[2020-08-02 15:03] LABS: ABSOLUTE EOSINOPHILS # (AUTO) 0.1 10^3/uL (0.0-0.6); ABSOLUTE LYMPHOCYTES (AUTO) 1.9 10^3/uL (0.5-4.7); ABSOLUTE MONOCYTES (AUTO) 0.6 10^3/uL (0.1-1.4); ABSOLUTE NEUT (AUTO) 6.2 10^3/uL (1.7-8.2); BASOPHILS % (AUTO) 0.3 % (0-2); EOSINOPHILS % (AUTO) 0.8 % (0-6); HEMATOCRIT 32.4 % (36.0-47.0); HEMOGLOBIN 11.2 g/dL (12.0-15.5); LYMPHOCYTES % (AUTO) 21.7 % (13-45); MEAN CORPUSCULAR HGB CONC 34.7 g/dL (32.0-36.0); MEAN CORPUSCULAR VOLUME 78 fl (80-97); MONOCYTES % (AUTO) 6.3 % (3-13); PLATELET COUNT 295 10^3/uL (150-450); RED BLOOD COUNT 4.15 10^6/uL (3.72-5.28); RED CELL DISTRIBUTION WIDTH 13.2 % (11.5-14.0); SEGMENTED NEUTROPHILS % (AUTO) 70.9 % (42-78); TOTAL CELLS COUNTED % (AUTO) 100 %; WHITE BLOOD COUNT 8.8 10^3/uL (4.0-10.5)
[2020-08-02 15:23] LABS: INTERNATIONAL RATION (INR) 0.88; PROTHROMBIN TIME 12.2 SEC (11.4-15.4)
[2020-08-02 15:24] LABS: PARTIAL THROMBOPLASTIN TIME 26.9 SEC (23.5-35.8)
[2020-08-02 15:25] LABS: APPEARANCE,URINE SLIGHTLY-CLOUDY; BILIRUBIN,URINE NEGATIVE (NEGATIVE); COLOR,URINE YELLOW; GLUCOSE, URINE NEGATIVE (NEGATIVE); KETONES,URINE 20 mg/dL (NEGATIVE); LEUKOCYTE ESTERASE,URINE TRACE (NEGATIVE); NITRITE,URINE NEGATIVE (NEGATIVE); PROTEIN,URINE 30 mg/dL (NEGATIVE); URINE SPECIFIC GRAVITY 1.024
[2020-08-02 15:27] LABS: ALBUMIN 3.6 g/dL (3.5-5.0); ALKALINE PHOSPHATASE 110 U/L (38-126); ANION GAP 7 (5-19); ASPARTATE AMINO TRANSFERASE 39 U/L (14-36); BILIRUBIN,DIRECT 0.2 mg/dL (0.0-0.4); BILIRUBIN,TOTAL 0.3 mg/dL (0.2-1.3); BLOOD UREA NITROGEN 8 mg/dL (7-20); CALCIUM 9.4 mg/dL (8.4-10.2); CARBON DIOXIDE 26 mmol/L (22-30); CHLORIDE 101 mmol/L (98-107); GLUCOSE 86 mg/dL (75-110); TOTAL PROTEIN 6.6 g/dL (6.3-8.2)
[2020-08-02 15:38] LABS: URINE AMPHETAMINES SCREEN NEGATIVE; URINE BARBITURATES SCREEN NEGATIVE; URINE COCAINE SCREEN NEGATIVE; URINE MARIJUANA (THC) SCREEN NEGATIVE; URINE METHADONE SCREEN NEGATIVE; URINE PHENCYCLIDINE SCREEN NEGATIVE
[2020-08-02 15:41] LABS: URINE BENZODIAZEPINES SCREEN UNCONFIRMED POSITIVE
--- NOTE | 2020-08-02 17:03 | ER Document Report ---
ED General - General Chief Complaint: Numbness of Arm Stated Complaint: NUMBNESS Time Seen by Provider: 08/02/20 14:14 TRAVEL OUTSIDE OF THE [place] IN LAST 30 DAYS: No - HPI Notes: Patient is a 24-year-old female who presents to the emergency department for evaluation. She is a G4, P3 female at approximately 30 weeks gestation who states that she started developing some right hand and arm tingling and numbness yesterday. It progressed throughout the evening. Started sometime in the late evening, she cannot tell me exactly when. She states that she thought it would get better but it is only gotten worse. She states she has some tingling in her hand but parts of her arm feel entirely numb. She states she cannot move her arm at her shoulder. She denies any pain. No recent injuries. She states that she is not really sure when she felt the baby move last. She denies any vaginal bleeding or abdominal pain or cramping. She also points to areas on her face where she states she has developed swelling and bruising. She denies any trauma. - Related Data Allergies/Adverse Reactions: amoxicillin [Amoxicillin] Allergy (Verified 09/10/18 04:48) Hives Penicillins Allergy (Verified 09/10/18 04:48) Home Medications: Subutex Past Medical History - General Information source: Patient - Social History Smoking Status: Never Smoker Chew tobacco use (# tins/day): No Frequency of alcohol use: None Drug Abuse: None - Former heroin abuse Family History: Reviewed & Not Pertinent, Other - ptsd, bipolar, alcoholism - Medical History Medical History: Other - Cholestasis during Renal/ Medical History: Reports: Hx Pelvic Inflammatory Disease. Denies: Hx Peritoneal Dialysis Psychiatric Medical History: Reports: Hx Anxiety, Hx Bipolar Disorder, Hx Depression - Immunizations Immunizations up to date: No Hx Diphtheria, Pertussis, Tetanus Vaccination: No Review of Systems - Review of Systems Constitutional: No symptoms reported EENT: No symptoms reported Cardiovascular: No symptoms reported Respiratory: No symptoms reported Gastrointestinal: No symptoms reported Genitourinary: No symptoms reported Female Genitourinary: See HPI Musculoskeletal: No symptoms reported Skin: See HPI Neurological/Psychological: See HPI Physical Exam - Vital signs Vitals: Temp Pulse Resp BP Pulse Ox 98.3 F 105 H 18 119/74 99 08/02/20 14:25 08/02/20 14:25 08/02/20 14:25 08/02/20 14:25 08/02/20 14:25 - Notes Notes: Vital signs reviewed, please refer to chart. Head is normocephalic, atraumatic. Pupils equal round, reactive to light. Neck is supple without meningismus. Heart is regular rate and rhythm. Lungs are clear to auscultation bilaterally. Abdomen is gravid, nontender, normoactive bowel sounds throughout. Extremities without cyanosis, clubbing. Posterior calves are nontender. Peripheral pulses are equal. Skin is warm and dry. Patient is awake, alert, oriented x3. Cranial nerves II - XII are grossly intact without focal neurological deficits. Strength is plus 5 out of 5 left upper and bilateral lower extremities. [place] of the right upper extremity is no obvious deformity. She is 3+ strength of the shoulder, no strength at the elbow against gravity, 2+ strength at the wrist, but her fingers do not seem to be affected, she was texting in the room when I entered the room. Sensation is intact to the remainder of the extremities with the exception of the right upper extremity where she complains of diminished sensation to light touch throughout. Reflexes symmetrical. Normal [id number]. Course - Re-evaluation Re-evalutation: 08/02/20 17:00 This is a 24-year-old female who presents to the emergency department for evaluation of right arm numbness and weakness. She states she also has bruising to her face that on exam I cannot appreciate in any way. On examination she does have weakness at her shoulder, at about 3+, no strength at her elbow, and 1+ strength at her wrist. The distribution of this weakness is not consistent. She reports diminished sensation to light touch throughout the entire right upper extremity. Her reflexes, however, are 2+ at the biceps and the brachioradialis. If by chance this is some sort of cerebrovascular incident, she is well outside of the window for TPA. CT scan of the head has been order ed. Thus far the only abnormality in her work-up is a positive drug screen for opiates and benzodiazepines. Patient is currently stable, we will continue to monitor. 08/02/20 17:07 Please note I did perform a bedside ultrasound to simply assess for cardiac activity and motion. Heart rate of 134, positive motion. 08/02/20 20:14 Patient's MRI is unremarkable. I went back into reevaluate the patient. She was sleeping. When I woke her she reached for her phone with her right hand and grabbed it. I went back to reassess strength, it had significantly improved. She was able to raise her arm. She was able to bend her arm without difficulty. She was able to hold onto her phone. She is not showing any signs of an acute stroke on CT or MRI. She has normal blood work. She does have a positive drug screen. She has good reflexes. I do have some suspicion of malingering in t his patient given her inconsistent exam. I will have her follow-up closely with primary care, she is to return to the ED with worsening or new concerning symptoms of any sort. - Vital Signs Vital signs: Temp Pulse Resp BP Pulse Ox 97.9 F 82 17 117/72 100 08/02/20 19:35 08/02/20 19:35 08/02/20 19:35 08/02/20 19:35 08/02/20 19:35 - Laboratory Results Result Diagrams: 08/02/20 14:42 08/02/20 14:42 Laboratory Results Interpreted: 08/02/20 08/02/20 08/02/20 14:42 14:42 14:45 Hgb 11.2 L Hct 32.4 L MCV 78 L Sodium 133.5 L Creatinine 0.41 L AST 39 H Beta HCG, Quant 53166.00 H Urine Protein 30 H Urine Ketones 20 H Urine Urobilinogen 2.0 H Ur Leukocyte Esterase TRACE H Critical Laboratory Results Reviewed: No Critical Results - Radiology Results Critical Radiology Results Reviewed: No Critical Results - EKG Interpretation by Me Additional EKG results interpreted by me: 08/02/20 17:06 Sinus mechanism with rate of 90 bpm. Normal axis and intervals. No acute ST changes concerning for ischemia or infarction. Discharge - Discharge Clinical Impression: Right arm weakness, Right upper extremity numbness Condition: Stable Disposition: HOME, SELF-CARE Instructions: Numbness or Paresthesia ([facility]), Weakness ([facility]) Additional Instructions: No clear cause was identified for your weakness or numbness. Please follow-up with your primary care provider and your [facility] INSPECTOR this week. Please abstain from using illicit drugs. If you develop worsened weakness, difficulty seeing, speaking, swallowing, or any other new or concerning symptoms, please return immediately to the emergency department for evaluation.
--- NOTE | 2020-08-02 17:18 | RADIOLOGY REPORT (SQ) ---
EXAM DESCRIPTION: CT HEAD WITHOUT IMAGES COMPLETED DATE/TIME: 08/02/2020 5:04 pm REASON FOR STUDY: left upper extremity numbness COMPARISON: None. TECHNIQUE: Axial images acquired through the brain without intravenous contrast. Images reviewed wi th bone, brain and subdural windows. Additional sagittal and coronal reconstructions were generated. Images stored on PACS. All CT scanners at this facility use dose modulation, iterative reconstruction, and/or weight based d osing when appropriate to reduce radiation dose to as low as reasonably achievable (ALARA). [facility]: Dose Right [facility]: CareDose [facility]: Dose Right [facility]: Teradose 4D [facility]: Smart Penumbra RADIATION DOSE: CT Rad equipment meets quality standard of care and radiation dose reduction techniq ues were employed. CTDIvol: 53.2 mGy. DLP: 991 mGy-cm. LIMITATIONS: None. FINDINGS: VENTRICLES: Normal size and contour. The cisterns are patent. CEREBRUM: No masses. No hemorrhage. No midline shift. No evidence for acute infarction. Normal gra y/white matter differentiation. No areas of low density in the white matter. CEREBELLUM: No masses. No hemorrhage. No alteration of density. No evidence for acute infarction. EXTRAAXIAL SPACES: No fluid collections. No masses. ORBITS AND GLOBE: No intra- or extraconal masses. Normal contour of globe without masses. CALVARIUM: No fracture. PARANASAL SINUSES: No fluid or mucosal thickening. SOFT TISSUES: No mass or hematoma. OTHER: No other significant finding. IMPRESSION: 1. No acute intracranial abnormality. EVIDENCE OF ACUTE STROKE: NO. COMMENT: Quality ID # [id number]: Final reports with documentation of one or more dose reduction techniques (e.g., Automated exposure control, adjustment of the mA and/or kV according to patient size, use of iterative reconstruction technique) TECHNICAL DOCUMENTATION: JOB ID: [id number] 2010 [employer]- All Rights Reserved Reading location - IP/workstation name: [email or web address]
--- NOTE | 2020-08-02 19:30 | RADIOLOGY REPORT (SQ) ---
EXAM DESCRIPTION: MRI HEAD WITHOUT IMAGES COMPLETED DATE/TIME: 08/02/2020 6:53 pm REASON FOR STUDY: RUE numbness and weakness COMPARISON: None. TECHNIQUE: Multiplanar imaging includes non-contrasted T1, T2, FLAIR, and diffusion with ADC map seq uences. Images stored on PACS. LIMITATIONS: None. FINDINGS: ANATOMY: No anomalies. Normal vascular flow voids. Pituitary fossa normal. CSF SPACES: Normal in size and contour. No hemorrhage. CEREBRUM: Sulci and gyri normal in size and contour. Normal white matter signal on FLAIR imaging. No evidence of hemorrhage, mass, or extraaxial fluid collection. POSTERIOR FOSSA: No signal alteration. No hemorrhage. No edema, masses or mass effect. Internal josé miguel tory canals, cerebello-pontine angles, mastoids normal. DIFFUSION IMAGING: Negative for acute or sub-acute infarction. ORBITS: No masses. Globes normal. PARANASAL SINUSES: No fluid levels. Mucosa normal. OTHER: No other significant finding. IMPRESSION: NORMAL MRI OF THE BRAIN WITHOUT INTRAVENOUS GADOLINIUM CONTRAST. EVIDENCE OF ACUTE STROKE: NO. TECHNICAL DOCUMENTATION: JOB ID: [id number] [email or web address]- All Rights Reserved Reading location - IP/workstation name: [email or web address]
[2020-08-02 19:35] VITALS: BP 117/72
--- NOTE | 2020-08-03 00:42 | EKG REPORT ---
SEVERITY:- ABNORMAL ECG - SINUS RHYTHM PROBABLE LEFT ATRIAL ABNORMALITY PROBABLE LEFT VENTRICULAR HYPERTROPHY : Confirmed by: Nain Carreon 03-Aug-2020 00:41:42
== END 2020-08-02 20:39 | disposition home or self-care (01) ==
LOC: ER 14:06
DX: O26.93 Pregnancy related conditions, unspecified, third trimester (principal); R20.0 Anesthesia of skin; R53.1 Weakness; Z3A.30 30 weeks gestation of pregnancy
CPT/HCPCS: 36415; 70450; 70551; 80053; 80307; 81001; 82962; 84484; 84702; 85025; 85610; 85730; 93005; 93010; 99285

== ENCOUNTER 2020-08-06 19:37 | Outpatient (CLI) | payer MEDICAID ==
[2020-08-06] MEDS ORDERED: MAG HYDROX/AL HYDROX/SIMETH SUSP 30 ML UDCUP PO ONE (21:06)
[2020-08-06] MEDS ORDERED: MAG HYDROX/AL HYDROX/SIMETH SUSP 30 ML UDCUP ONE (21:17)
[2020-08-06 21:19] LABS: APPEARANCE,URINE CLEAR; BILIRUBIN,URINE NEGATIVE (NEGATIVE); COLOR,URINE YELLOW; GLUCOSE, URINE NEGATIVE (NEGATIVE); KETONES,URINE NEGATIVE (NEGATIVE); LEUKOCYTE ESTERASE,URINE NEGATIVE (NEGATIVE); NITRITE,URINE NEGATIVE (NEGATIVE); PROTEIN,URINE NEGATIVE (NEGATIVE); URINE SPECIFIC GRAVITY 1.018
[2020-08-06 21:33] LABS: URINE AMPHETAMINES SCREEN NEGATIVE; URINE BARBITURATES SCREEN NEGATIVE; URINE BENZODIAZEPINES SCREEN NEGATIVE; URINE COCAINE SCREEN NEGATIVE; URINE MARIJUANA (THC) SCREEN NEGATIVE; URINE METHADONE SCREEN NEGATIVE; URINE PHENCYCLIDINE SCREEN NEGATIVE
== END 2020-08-06 21:43 | disposition home or self-care (01) ==
LOC: LC 19:37
PROVIDERS: ATTEND Obstetrics & Gynecology
DX: O47.03 False labor before 37 completed weeks of gestation, third trimester (principal); Z3A.31 31 weeks gestation of pregnancy; Z88.0 Allergy status to penicillin; Z87.891 Personal history of nicotine dependence
CPT/HCPCS: 59899; 36415; 81001; 80307; 80361; 84112; J3490